=== PATIENT | male | born 1970 | race Caucasian/White ===

== ENCOUNTER 2020-06-17 09:11 | Outpatient (REF) | payer OTHER, SELFPAY ==
[2020-06-17 13:31] LABS: Estimated Average Glucose 163 mg/dL; Hemoglobin A1c % 7.3 %
== END 2020-06-17 09:12 | disposition home or self-care (01) ==
LOC: HO.MANLR 09:11
PROVIDERS: PCP Internal Medicine; Visit Provider Internal Medicine
DX: E11.9 Type 2 diabetes mellitus without complications (principal)
CPT/HCPCS: 83036

== ENCOUNTER 2020-11-07 15:58 | Outpatient (REF) | payer BC, SELFPAY ==
[2020-11-07 18:11] LABS: Estimated Average Glucose 189 mg/dL; Hemoglobin A1c % 8.2 %
[2020-11-07 18:15] LABS: Alanine Aminotransferase 23 U/L (0-40); Albumin Level 4.6 g/dL (3.5-5.0); Alkaline Phosphatase 68 U/L (39-117); Anion Gap 16 (12-20); Aspartate Amino Transferase 14 U/L (5-37); Bilirubin Total 1.1 mg/dL (0.0-1.0); Blood Urea Nitrogen 13 mg/dL (9-16); Calcium 9.4 mg/dL (8.4-10.2); Carbon Dioxide 27 mmol/L (22-29); Chloride 99 mmol/L (96-108); Estimated Glomerular Filt Rate > 60; Glucose Random 291 mg/dL (60-115); Potassium 4.2 mmol/L (3.3-5.1); Sodium 138 mmol/L (135-145); Total Protein 7.4 g/dL (6.5-8.0)
[2020-11-07 18:38] LABS: Prostate Specific Antigen 0.74 ng/mL (<0.05-4.0)
== END 2020-11-07 15:59 | disposition home or self-care (01) ==
LOC: HO.MANLDS 15:58
PROVIDERS: PCP Internal Medicine; Visit Provider Internal Medicine
DX: Z12.5 Encounter for screening for malignant neoplasm of prostate (principal); E11.9 Type 2 diabetes mellitus without complications
CPT/HCPCS: 36415; 80053; 83036; 84153; 87071; 87147

== ENCOUNTER 2022-01-13 09:22 | Outpatient (REF) | payer BC, SELFPAY ==
[2022-01-13 11:07] LABS: Alanine Aminotransferase 26 U/L (0-40); Albumin Level 4.6 g/dL (3.5-5.0); Alkaline Phosphatase 51 U/L (39-117); Anion Gap 13 (12-20); Aspartate Amino Transferase 18 U/L (5-37); Bilirubin Total 1.4 mg/dL (0.0-1.0); Blood Urea Nitrogen 11 mg/dL (9-16); Carbon Dioxide 26 mmol/L (22-29); Chloride 103 mmol/L (96-108); Cholesterol 214 mg/dL; Estimated Glomerular Filt Rate > 60; Glucose Random 169 mg/dL (60-115); HDL Cholesterol 41 mg/dL; LDL Cholesterol Calculated 133 mg/dl; Potassium 4.6 mmol/L (3.3-5.1); Sodium 137 mmol/L (135-145); Total Protein 7.6 g/dL (6.5-8.0); Triglycerides 204 mg/dL
[2022-01-13 11:19] LABS: Estimated Average Glucose 131 mg/dL; Hemoglobin A1c % 6.2 %
[2022-01-13 11:23] LABS: Prostate Specific Antigen 0.65 ng/mL (<0.05-4.0)
[2022-01-13 11:32] LABS: Creatinine Urine 22.03 mg/dL; Microalbum/Creatinine Ratio Ur 36.3 ug/mg cr
== END 2022-01-13 09:23 | disposition home or self-care (01) ==
LOC: HO.MANLDS 09:22
PROVIDERS: PCP Internal Medicine; Visit Provider Internal Medicine
DX: Z12.5 Encounter for screening for malignant neoplasm of prostate (principal); E11.9 Type 2 diabetes mellitus without complications
CPT/HCPCS: 36415; 80053; 80061; 82043; 83036; 84153; 86787

== ENCOUNTER 2022-05-10 16:06 | Outpatient (REF) | payer BC, SELFPAY ==
[2022-05-11 05:23] LABS: Estimated Average Glucose 140 mg/dL; Hemoglobin A1c % 6.5 %
== END 2022-05-10 16:07 | disposition home or self-care (01) ==
LOC: HO.MANLDS 16:06
PROVIDERS: Visit Provider Internal Medicine
DX: E11.9 Type 2 diabetes mellitus without complications (principal)
CPT/HCPCS: 36415; 83036

== ENCOUNTER 2022-09-17 16:01 | Outpatient (REF) | payer BC, SELFPAY ==
[2022-09-17 19:36] LABS: Estimated Average Glucose 131 mg/dL; Hemoglobin A1c % 6.2 %
[2022-09-17 19:44] LABS: Alanine Aminotransferase 14 U/L (0-40); Albumin Level 4.5 g/dL (3.5-5.0); Alkaline Phosphatase 60 U/L (39-117); Anion Gap 16 (12-20); Aspartate Amino Transferase 13 U/L (5-37); Bilirubin Total 0.8 mg/dL (0.0-1.0); Blood Urea Nitrogen 10 mg/dL (9-16); Calcium 9.8 mg/dL (8.4-10.2); Carbon Dioxide 26 mmol/L (22-29); Chloride 101 mmol/L (96-108); Estimated Glomerular Filt Rate > 60; Glucose Random 160 mg/dL (60-115); Potassium 4.1 mmol/L (3.3-5.1); Sodium 139 mmol/L (135-145); Total Protein 7.2 g/dL (6.5-8.0)
[2022-09-17 19:45] LABS: Creatinine Urine 22.75 mg/dL; Microalbum/Creatinine Ratio Ur 35.1 ug/mg cr
== END 2022-09-17 16:02 | disposition home or self-care (01) ==
LOC: HO.MANLDS 16:01
PROVIDERS: Visit Provider Internal Medicine
DX: E11.9 Type 2 diabetes mellitus without complications (principal)
CPT/HCPCS: 36415; 80053; 82043; 83036

== ENCOUNTER 2023-03-28 11:40 | Outpatient (REF) | payer BC, SELFPAY ==
[2023-03-28 14:46] LABS: Estimated Average Glucose 114 mg/dL; Hemoglobin A1c % 5.6 %
== END 2023-03-28 11:41 | disposition home or self-care (01) ==
LOC: HO.MANLDS 11:40
PROVIDERS: Visit Provider Internal Medicine
DX: E11.9 Type 2 diabetes mellitus without complications (principal)
CPT/HCPCS: 36415; 83036

== ENCOUNTER 2023-04-22 10:24 | Outpatient (REF) | payer BC, SELFPAY ==
[2023-04-22 15:41] LABS: Cholesterol 180 mg/dL (<200); HDL Cholesterol 37 mg/dL (>40); LDL Cholesterol Calculated 112 mg/dL (<100); Triglycerides 156 mg/dL (<150)
== END 2023-04-22 10:25 | disposition home or self-care (01) ==
LOC: HO.MANLDS 10:24
PROVIDERS: Visit Provider Internal Medicine
DX: I25.10 Atherosclerotic heart disease of native coronary artery without angina pectoris (principal)
CPT/HCPCS: 36415; 80061

== ENCOUNTER 2023-07-13 12:46 | Outpatient (REF) | payer BC, SELFPAY ==
[2023-07-13 15:27] LABS: Estimated Average Glucose 114 mg/dL; Hemoglobin A1c % 5.6 % (<6.0)
== END 2023-07-13 12:47 | disposition home or self-care (01) ==
LOC: HO.MANLDS 12:46
PROVIDERS: Visit Provider Internal Medicine
DX: E11.9 Type 2 diabetes mellitus without complications (principal)
CPT/HCPCS: 36415; 83036

== ENCOUNTER 2023-11-25 10:54 | Outpatient (REF) | payer BC, SELFPAY ==
[2023-11-25 13:32] LABS: Estimated Average Glucose 131 mg/dL; Hemoglobin A1c % 6.2 % (<6.0)
== END 2023-11-25 10:55 | disposition home or self-care (01) ==
LOC: HO.MANLDS 10:54
PROVIDERS: Visit Provider Internal Medicine
DX: E11.9 Type 2 diabetes mellitus without complications (principal)
CPT/HCPCS: 36415; 83036

== ENCOUNTER 2023-12-19 11:53 | Outpatient (REF) | payer BC, SELFPAY ==
[2023-12-22 07:53] LABS: HLA B27 Negative (Negative)
== END 2023-12-19 11:54 | disposition home or self-care (01) ==
LOC: HO.MANLDS 11:53
PROVIDERS: Visit Provider Internal Medicine
DX: M46.1 Sacroiliitis, not elsewhere classified (principal)
CPT/HCPCS: 36415; 86812

== ENCOUNTER 2024-07-23 11:58 | Outpatient (REF) | payer BC, SELFPAY ==
[2024-07-23 18:20] LABS: MANUAL DIFF FLAG NO
[2024-07-23 18:36] LABS: Basophils Percent Auto 0.6 % (0-2); Eosinophils Absolute Auto 0.1 X10*3/uL (0.0-0.4); Eosinophils Percent Auto 1.4 % (0-4); Hematocrit 41.6 % (42.0-52.0); Hemoglobin 14.8 g/dl (14.0-18.0); Imm Gran Abs Auto 0.02 X10*3/uL (0.00-0.03); Imm Gran Pct Auto 0.3 % (0.0-0.4); Lymphocytes Absolute Auto 1.3 X10*3/uL (1.2-4.9); Lymphocytes Percent Auto 19.9 % (20-40); Mean Corpuscular HGB Conc 35.6 g/dl (31.0-36.0); Mean Corpuscular Hemoglobin 30.6 pg (27.0-33.0); Mean Platelet Volume 9.7 fL (9.4-12.4); Monocytes Absolute Auto 0.5 X10*3/uL (0.1-1.2); Monocytes Percent Auto 7.1 % (2-11); Neutrophils Absolute Auto 4.5 x10*3/uL (2.0-8.3); Neutrophils Percent Auto 70.7 % (45-73); Platelet Count 260 X10*3/uL (160-400); Red Blood Count 4.84 X10*6/uL (4.60-5.80); Red Cell Distribution Width 12.7 % (11.0-16.0); White Blood Count 6.4 X10*3/uL (4.8-10.8)
[2024-07-23 18:47] LABS: Alanine Aminotransferase 24 U/L (0-40); Albumin Level 4.3 g/dL (3.5-5.0); Alkaline Phosphatase 54 U/L (39-117); Anion Gap 14 (12-20); Aspartate Amino Transferase 22 U/L (5-37); Blood Urea Nitrogen 12 mg/dL (9-16); Calcium 9.7 mg/dL (8.4-10.2); Carbon Dioxide 26 mmol/L (22-29); Chloride 101 mmol/L (96-108); Estimated Glomerular Filt Rate > 60; Glucose Random 158 mg/dL (60-115); Potassium 3.8 mmol/L (3.3-5.1); Sodium 137 mmol/L (135-145)
[2024-07-23 19:22] LABS: Prostate Specific Antigen 0.58 ng/mL (<0.05-4.0)
[2024-07-24 07:18] LABS: Estimated Average Glucose 160 mg/dL; Hemoglobin A1C 207.6352 umol/L; Hemoglobin A1c % 7.2 % (<6.0); Total Hemoglobin (HGBA1C) 3758.8465 umol/L
== END 2024-07-23 11:59 | disposition home or self-care (01) ==
LOC: HO.MANLDS 11:58
PROVIDERS: Visit Provider Internal Medicine
DX: E78.00 Pure hypercholesterolemia, unspecified (principal); E11.9 Type 2 diabetes mellitus without complications; Z12.5 Encounter for screening for malignant neoplasm of prostate; I10 Essential (primary) hypertension
CPT/HCPCS: 36415; 80053; 83036; 84153; 85025

== ENCOUNTER 2024-10-26 11:03 | Outpatient (REF) | payer BC, SELFPAY ==
--- OUTSIDE RECORDS SUMMARY | 2024-10-26 12:51 | XMS_ITS | Data Portability ---
Author Organization [facility] Address [address] [place] [address] Assessment Encounter Date Assessment Date Assessment LastModified by Organization Details LastModified Time 12/19/2023 12/19/2023 [id number] [place] [id number] (MEDIA ANALYTICS MANAGER) : MDM LOW MUST MEET 2 OF 3 ELEMENTS: PROBLEMS, DATA OR RISK ELEMENT 1: PROBLEMS ADDRESSED (LOW): 2 OR MORE SELF-LIMITED OR MINOR PROBLEMS OR 1 STABLE CHRONIC ILLNESS OR 1 ACUTE UNCOMPLICATED ILLNESS OR INJURY ELEMENT 2: DATA TO BE REVISED AND ANALYZED (LOW) MUST MEET 1 OF 2 CATEGORIES: CATEGORY 1. REVIEW OF PRIOR EXTERNAL NOTES/RESULTS, ORDERING OF TEST(S) CATEGORY 2. ASSESSMENT REQUIRING INDEPENDENT HISTORIAN(S) INCLUDE WHO THE HISTORIAN IS AND RELATION TO PT AND WHY PT IS UNABLE TO GIVE COMPLETE HISTORY ELEMENT 3: RISK (LOW) RISK OF COMPLICATIONS AND/OR MORBIDITY OR MORTALITY OF PATIENT MANAGEMENT PROVIDER MUST THOROUGHLY DOCUMENT ALL OF THE ELEMENTS COVERED Not available 12/19/2023 11:46:20 02/13/2024 02/13/2024 [id number] [place] [address] (MEDIA ANALYTICS MANAGER) MDM MODERATE MUST MEET 2 OUT OF 3 ELEMENTS: PROBLEMS, DATA OR RISK ELEMENT 1: PROBLEMS ADDRESSED 1 OR MORE CHRONIC ILLNESS WITH EXACERBATION OR 2 OR MORE STABLE CHRONIC ILLNESSES OR 1 UNDIAGNOSED NEW PROBLEM OR 1 ACUTE ILLNESS W/SYMPTOMS OR 1 ACUTE COMPLICATED INJURY ELEMENT 2: DATA MUST MEET 1 OF 3 CATEGORIES CATEGORY 1: REVIEW OF PRIOR EXTERNAL NOTES, REVIEW OF RESULTS, ORDERING OF EACH TEST, ASSESSMENT REQUIRING INDEPENDENT HISTORIAN OR CATEGORY 2: INDEPENDENT INTERPRETATION OF TESTS BY ANOTHER PHYSICIAN OR SPECIALIST OR CATEGORY 3: DISCUSSION OF MGT OR TEST INTERPRETATION W/EXTERNAL PHYSICIAN OR SPECIALIST ELEMENT 3: RISK RISK OF COMPLICATIONS AND/OR MORBIDITY OR MORTALITY OF PATIENT MANAGEMENT PROVIDER MUST THOROUGHLY DOCUMENT EACH ELEMENT THAT IS COVERED Not available 02/13/2024 10:43:49 02/28/2024 02/28/2024 [id number] [place] [id number] (MEDIA ANALYTICS MANAGER) MDM MODERATE MUST MEET 2 OUT OF 3 ELEMENTS: PROBLEMS, DATA OR RISK ELEMENT 1: PROBLEMS ADDRESSED 1 OR MORE CHRONIC ILLNESS WITH EXACERBATION OR 2 OR MORE STABLE CHRONIC ILLNESSES OR 1 UNDIAGNOSED NEW PROBLEM OR 1 ACUTE ILLNESS W/SYMPTOMS OR 1 ACUTE COMPLICATED INJURY ELEMENT 2: DATA MUST MEET 1 OF 3 CATEGORIES CATEGORY 1: REVIEW OF PRIOR EXTERNAL NOTES, REVIEW OF RESULTS, ORDERING OF EACH TEST, ASSESSMENT REQUIRING INDEPENDENT HISTORIAN OR CATEGORY 2: INDEPENDENT INTERPRETATION OF TESTS BY ANOTHER PHYSICIAN OR SPECIALIST OR CATEGORY 3: DISCUSSION OF MGT OR TEST INTERPRETATION W/EXTERNAL PHYSICIAN OR SPECIALIST ELEMENT 3: RISK RISK OF COMPLICATIONS AND/OR MORBIDITY OR MORTALITY OF PATIENT MANAGEMENT PROVIDER MUST THOROUGHLY DOCUMENT EACH ELEMENT THAT IS COVERED Not available 02/28/2024 09:38:36 07/23/2024 07/23/2024 [id number] [place] [id number] (MEDIA ANALYTICS MANAGER) MDM MODERATE MUST MEET 2 OUT OF 3 ELEMENTS: PROBLEMS, DATA OR RISK ELEMENT 1: PROBLEMS ADDRESSED 1 OR MORE CHRONIC ILLNESS WITH EXACERBATION OR 2 OR MORE STABLE CHRONIC ILLNESSES OR 1 UNDIAGNOSED NEW PROBLEM OR 1 ACUTE ILLNESS W/SYMPTOMS OR 1 ACUTE COMPLICATED INJURY ELEMENT 2: DATA MUST MEET 1 OF 3 CATEGORIES CATEGORY 1: REVIEW OF PRIOR EXTERNAL NOTES, REVIEW OF RESULTS, ORDERING OF EACH TEST, ASSESSMENT REQUIRING INDEPENDENT HISTORIAN OR CATEGORY 2: INDEPENDENT INTERPRETATION OF TESTS BY ANOTHER PHYSICIAN OR SPECIALIST OR CATEGORY 3: DISCUSSION OF MGT OR TEST INTERPRETATION W/EXTERNAL PHYSICIAN OR SPECIALIST ELEMENT 3: RISK RISK OF COMPLICATIONS AND/OR MORBIDITY OR MORTALITY OF PATIENT MANAGEMENT PROVIDER MUST THOROUGHLY DOCUMENT EACH ELEMENT THAT IS COVERED Not available 07/23/2024 11:52:52 Plan of Treatment Reminders Order Date Submit Date Provider Last Modified By Organization Details Last Modified Time Details Appointments FOLLOW UP 15 2024 11:00A M DR SOSA Not available Not available Not available Lab CBC 2023 024 [facility], [address] [place] [address], [place], [address], 07/24/2024 11:47:08 PSA, serum or plasma 2023 024 [facility], [address] [place] [address], [place], [address], 07/23/2024 11:54:14 HbA1c (hemoglob in A1c), blood 2023 [facility], [address] [place] [address], [place], [address], 07/24/2024 11:47:08 CMP, serum or plasma 2023 [facility], [address] [place] [address], [place], [address], 07/24/2024 11:47:07 hla-[id number], blood 2023 [facility], [address] [place] [address], [address], 12/22/2023 12:27:54 Referral physical therapist referral - please be aggressiv e pt is very physicall y active for work 2023 [facility], [address] [place], [address], 12/26/2023 08:23:43 Procedures None recorded. Surgeries None recorded. Imaging XR, chest, 2 view - follow up from right sided pneumonit is 2023 [facility], [address] [place], [address], 03/27/2024 08:07:52 Medication Orders hydrocodo ne 10 mg-chlorp heniramin e 8 mg/5 mL oral susp extend.re l 12hr 2023 [facility] #[id number], [address] [place], [place], [id number], 02/28/2024 09:42:07 prednison e 10 mg tablet 2023 [facility] #96524, [address] [place], [place], [id number], 02/28/2024 09:42:02 fluticaso ne 500 mcg-salme terol 50 mcg/dose blistr powdr for inhalatio n 2023 024 [facility] #75557, [address] [place], [place], [phone], 07/23/2024 11:47:54 tadalafil 20 mg tablet 2023 024 [facility], [address] [place] [address], [place], [address], 02/13/2024 10:45:24 azithromy debbi 250 mg tablet 2023 024 [facility] #49505, [address] [place], [place], [id number], 02/13/2024 10:44:11 Medrol (Antonio) 4 mg tablets in a dose pack 2023 024 [facility] #[id number], [address] [place], [place], [id number], 02/28/2024 21:59:12 Patient TargetsNo targets recorded. Patient Instructions Encounter Date Encounter Id Patient Instructions Last Modified By Organization Details Last Modified Time 02/28/2024 [id number] pneumonia: care instructions Not available 02/28/2024 09:41:55 Reason for Referral Physical Therapist Referral for Bilateral sacroiliitis please be aggressive pt is very physically active for work Referring Physician: Elías Sosa, Internal Medicine, Encounter Date: 12/19/2023 Results Created Date Observation Date Name Description Value Unit Range Abnormal Flag Note LastModifiedBy Organization Detail LastModifiedTime 11/30/19 24 11/28/2023 XR, lumbo sacra l spine , 2 or 3 view No observ ation record ed. [email or web address] [address], [place], [address], 12/02/2023 15:19:33 11/30/19 24 11/28/2023 XR, hip + pelvi s, unila teral , 2 or 3 view No observ ation record ed. [email or web address] [address], [address], 12/02/2023 15:19:34 02/22/20 24 02/22/2024 XR, chest , 2 view No observ ation record ed. [email or web address] [address], [address], 02/24/2024 12:11:48 04/05/20 24 04/05/2024 XR, chest , 2 view No observ ation record ed. [email or web address] [address], [address], 2024 09:20:33 Result Notes None recorded. Problems Name Problem SNOMED Code Status Onset Date Resolution Date Notes Provider Name and Address Organization Details Recorded Time Hyperten sive disorder 76146383 Active 2017 Not Available [facility] 2 13:45:01 Impaired fasting glycemia 545175856 Completed 201710/19/2019 Elías Sosa, DO [address] [place] [address], [address], [facility] 0 16:44:26 Degenera tion of lumbar interver tebral disc 48910218 Active 2017 Not Available [facility] 2 13:45:01 History of polyp of colon 410539975 Active 2017 Not Available [facility] 2 13:45:01 Osteoart hritis 418327636 Active 2018 Not Available [facility] 2 13:45:01 Type 2 diabetes mellitus 36877737 Active 2019 Not Available [facility] 2 13:45:01 Gastroes ophageal reflux disease 163702837 Active 2019 Not Available [facility] 2 13:45:01 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 2021 Elías Sosa, DO [address] [place] [address], [address], [facility] 2 16:26:27 Osteoart hritis of left knee joint 0239024592 20752 Active 2021 did well with replacem ent since nov has been back to work [employer] [facility] Elías Sosa, DO [address] [place] [address], [address], [facility] 3 16:18:47 Hypercho lesterol emia 27615246 Active 2022 Elías Sosa, DO [address] [place] [address], [address], [facility] 3 16:23:44 Calcific coronary arterios clerosis 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 Active 2022 Elías Sosa, DO [address] [place] [address], [address], [facility] 3 16:25:38 Low back pain 094201311 Active 2023 Elías Sosa, DO [address] [place] [address], [address], [facility] 4 12:21:40 Pain of left hip joint 2993010521 57473 Active 2023 Elaís Sosa, DO [address] [place] [address], [address], [facility] 4 12:22:12 Motion sickness 76628509 Active 2023 Elías Sosa DO [address] [place] [address], [address], [facility] 4 12:25:30 Allergic rhinitis 81700145 Active 2023 Elías Sosa DO [address] [place] [address], [address], [facility] 4 12:28:18 Bilatera l sacroili itis 2066966255 1943492 Active 2023 Elías Sosa, DO [address] [place] [address], [address], [facility] 4 11:46:35 Pneumoni tis 680653769 Active 2023 Elías Sosa, DO [address] [place] [address], [address], [facility] 4 10:42:21 Cough 00069657 Active 2023 Elías Sosa, DO [address] [place] [address], [address], [facility] 4 22:34:30 Pneumoni a 477810590 Active 2023 Elías Sosa, DO [address] [place] [address], [address], [facility] 4 00:37:56 Reactive airway disease 1680553923 06 Active 2023 Elías Sosa, [address], [address], [facility] 4 09:34:57 Problem Notes None recorded. Procedures Surgical History Date Name Laterality Status Provider Name and Address Organization Details Recorded Time 6 Colonoscopy completed Mariela Palmer [facility] 08/25/2018 09:49:23 Imaging Results Imaging Date Name Status LastModified by Organiz ation Details LastModified Time 11/28/2023 XR, lumbosacral spine, 2 or 3 view completed [email or web address] [address], [address], 12/02/2023 15:19:33 11/28/2023 XR, hip + pelvis, unilateral, 2 or 3 view completed [email or web address] [address], [address], 12/02/2023 15:19:34 02/22/2024 XR, chest, 2 view completed [email or web address] [address], [address], 02/24/2024 12:11:48 04/05/2024 XR, chest, 2 view completed [email or web address] [address], [address], 2024 09:20:33 Procedure Notes None recorded. Medical Equipment None Reported. Allergies No known drug allergies Medications Name Sig Start Date Stop Date Status Note LastModified by Organization Details LastModified Time prednisone 10 mg tablet 4 tab po 1d x 3 days then 3 po qd x 3 ,then 2 po qd x 3 then 1 po qd x3 days active Not Available Not Available No t Available sildenafil 50 mg tablet Take 1 tablet every day by oral route for 30 days. 06/18 completed Not Available Not Available Not Available azithromyci n 250 mg tablet TAKE 2 TABLETS BY MOUTH FOR DAY 1. THEN TAKE 1 TABLET BY MOUTH EVERY DAY FOR 4 DAYS. active Not Available Not Available No t Available ibuprofen 800 mg tablet TAKE 1 TABLET BY MOUTH EVERY 8 HOURS NEEDED active Not Available Not Available No t Available ondansetron HCl 4 mg tablet TAKE 1 TABLET BY MOUTH EVERY 6 HOURS NEEDED FOR NAUSEA OR VOMITING 09/17 completed Not Available Not Available Not Available aspirin 81 mg tablet,scooter yed release Take 1 tablet every day by oral route. active Not Available Not Available No t Available sildenafil 100 mg tablet take 1 tablet by mouth once a day as needed 01/18 completed Not Available Not Available Not Available amoxicillin 500 mg tablet TAKE 4 TABLETS BY MOUTH 1 HOUR BEFORE DENTAL WORK 11/27 completed Not Available Not Available Not Available meloxicam 7.5 mg tablet TAKE 1 TABLET BY MOUTH DAILY 07/23 completed Not Available Not Available Not Available losartan 100 mg-hydrochl orothiazide 25 mg tablet take 1 tablet by mouth once a day 01/27 completed Not Available Not Available Not Available terbinafine HCl 250 mg tablet 08/25 completed Not Available Not Available Not Available amlodipine 10 mg tablet TAKE 1 TABLET DAILY active Not Available Not Available No t Available omeprazole 20 mg capsule,del ayed release TAKE 1 CAPSULE DAILY active Not Available Not Available No t Available lovastatin 20 mg tablet TAKE 1 TABLET DAILY 04/20 completed Not Available Not Available Not Available levofloxaci n 750 mg tablet TAKE 1 TABLET BY MOUTH EVERY DAY FOR 7 DAYS active Not Available Not Available No t Available scopolamine 1 mg over 3 days transdermal patch APPLY 1 PATCH TOPICALLY TO THE SKIN EVERY 72 HOURS FOR 10 DAYS 12/18 completed Not Available Not Available Not Available methylpredn isolone 4 mg tablets in a dose pack FOLLOW PACKAGE DIRECTION S 02/27 completed Not Available Not Available Not Available hydrocodone 10 mg-chlorphe niramine 8 mg/5 mL oral susp extend.rel 12hr SHAKE LIQUID AND TAKE 5 ML BY MOUTH EVERY 12 HOURS FOR 7 DAYS active Not Available Not Available No t Available albuterol sulfate HFA 90 mcg/actuati on aerosol inhaler INHALE 2 PUFFS INTO THE LUNGS EVERY 6 HOURS NEEDED active Not Available Not Available No t Available ketoconazol e 2 % topical cream 08/25 completed Not Available Not Available Not Available losartan 100 mg tablet TK 1 T PO QD 11/07 completed Not Available Not Available Not Available fluticasone propionate 50 mcg/actuati on nasal spray,suspe nsion 08/25 completed Not Available Not Available Not Available oxycodone 5 mg tablet TAKE 1 TO 2 TABLETS BY MOUTH EVERY 4 HOURS NEEDED FOR PAIN 09/17 completed Not Available Not Available Not Available azithromyci n 500 mg tablet 08/25 completed Not Available Not Available Not Available rosuvastati n 20 mg tablet 1 PO QD 10/14 completed Not Available Not Available Not Available rosuvastati n 40 mg tablet Take 1 tablet every day by oral route for 90 days. active Not Available Not Available No t Available tadalafil 20 mg tablet Take 1 tablet every day by oral route for 90 days. active Not Available Not Available No t Available losartan 100 mg-hydrochl orothiazide 12.5 mg tablet TAKE 1 TABLET DAILY 2023 active Not Available Not Available Not Avai lable hydrochloro thiazide 12.5 mg tablet TK 1 T PO QD 11/07 completed Not Available Not Available Not Available Wixela Inhub 500 mcg-50 mcg/dose powder for inhalation INHALE 1 PUFF BY MOUTH TWICE DAILY 07/23 completed Not Available Not Available Not Available BinaxNOW COVID-19 Ag Self Test kit TEST DIRECTED TODAY 11/27 completed Not Available Not Available Not Available Vitals Date Recorded Body height Body mass index (BMI) Body weight Heart rate Oxygen saturation Oxygen saturation in Arterial blood by Pulse oximetry Systolic blood pressure Diastolic blood pressure Provider Name and Address Organization Details Last Updated DateTime 4 177.17 cm 37.4 kg/m2 025681. 35 g 86 /min 97 % 97 % 120 mm[Hg] 80 mm[Hg] Luz Kumar [facility] 4 11:13:58 Date Recorded Body height Body mass index (BMI) Body weight Heart rate Respiratory rate Oxygen saturation Oxygen saturation in Arterial blood by Pulse oximetry Systolic blood pressure Diastolic blood pressure Provider Name and Address Organization Details Last Updated DateTime 4 177.8 cm 36.3 kg/m2 300729. 87 g 105 /min 19 /min 98 % 98 % 128 mm[Hg] 82 mm[Hg] Nick Keys [facility] 4 10:15:13 Date Recorded Body height Body mass index (BMI) Body weight Heart rate Oxygen saturation Oxygen saturation in Arterial blood by Pulse oximetry Systolic blood pressure Diastolic blood pressure Provider Name and Address Organization Details Last Updated DateTime 4 177.8 cm 36.3 kg/m2 677501. 87 g 71 /min 97 % 97 % 130 mm[Hg] 70 mm[Hg] Dorothy Camacho [facility] 4 09:12:52 Date Recorded Body height Body mass index (BMI) Body weight Heart rate Oxygen saturation Oxygen saturation in Arterial blood by Pulse oximetry Systolic blood pressure Diastolic blood pressure Provider Name and Address Organization Details Last Updated DateTime 4 177.8 cm 36 kg/m2 137860. 68 g 103 /min 97 % 97 % 120 mm[Hg] 70 mm[Hg] Dorothy Camacho [facility] 4 12:08:18 Date Recorded Body height Body mass index (BMI) Body weight Heart rate Oxygen saturation Oxygen saturation in Arterial blood by Pulse oximetry Systolic blood pressure Diastolic blood pressure Provider Name and Address Organization Details Last Updated DateTime 4 177.8 cm 36.2 kg/m2 178753. 28 g 92 /min 98 % 98 % 148 mm[Hg] 78 mm[Hg] Dorothy Newman [facility] 4 11:37:10 Social History Question Answer Notes LastModified by Organizat ion Details LastModified Time Tobacco Smoking Status Former Smoker Not Available [facility] 07/01/2020 03:36:24 What Was The Date Of Your Most Recent Tobacco Screening? 07/23/2024 Information not available 07/23/2024 Do You Or Have You Ever Used Any Other Forms Of Tobacco Or Nicotine? No [email or web address] Information not available 05/10/2022 Sex: Unknown Functional Status None recorded. Mental Status None recorded. Family History Nothing Reported. Medical History No medical history recorded. Immunizations Vaccine Type Date Status Note Provider Nam e and Address Organization Details Recorded Time Influenza, split virus, quadrivalent, preservative 1 completed Not Available [facility] 08/23/2023 14:30:06 Tdap 1 completed Not Available [facility] 08/23/2023 14:30:06 COVID-19, mRNA, LNP-S, PF, 30 mcg/0.3 mL dose 1 completed Not Available [facility] 08/23/2023 14:30:06 COVID-19, mRNA, LNP-S, PF, 30 mcg/0.3 mL dose 1 completed Not Available [facility] 08/23/2023 14:30:06 COVID-19, mRNA, LNP-S, PF, 30 mcg/0.3 mL dose 2 completed Not Available [facility] 08/23/2023 14:30:06 influenza, unspecified formulation 2 completed Not Available [facility] 08/23/2023 14:30:06 Past Encounters Encounter ID Performer Location Encounter Start Date Encounter Closed Date Diagnosis/Indication Diagnosis SNOMED-CT Code Diagnosis ICD10 Code Diagnosis Note [id number] DO [facility] [address] [facility],[place] [address] 08/25/2018 10:15:10 08/25/2018 12:35:45 Hypertensive disorder 95236624 I10 bp is stable and is doing ok has lost some wgt \ tolerating meds no issues Impaired f asting glycemia 622420881 R73.01 will need to get some labwork atsome point [id number] Elías Sosa DO [facility] [address] [facility], [employer] [place] [address] 03/13/2019 10:40:15 03/13/2019 16:16:11 Hypertensive disorder 94620827 I10 bp is stable and is doing ok has lost some wgt \ tolerating meds no issues Impaired f asting glycemia 742202955 R73.01 will need to get some labwork now Hypercholesterolemia 136 97142 E78.00 needs fbw [id number] Elías Sosa DO [facility] [address] [facility], [place] [address] 08/17/2019 14:10:13 08/17/2019 14:33:11 Impaired fasting glycemia 639894491 R73.01 will need to get some labwork now Hypertensive disorder 38 777085 I10 bp is stable and is doing ok has lost some wgt \ tolerating meds no issues Fatigue 92657366 R53.83 including ED Primary er ectile dysfunction 255815527 N52.9 [id number] Elías Sosa DO [facility] [address] [facility],[place] [address] 10/19/2019 15:41:21 10/22/2019 08:36:17 Hypertensive disorder 45191038 I10 bp is stable and is doing ok has lost some wgt tolerating meds no issues Hypercholesterolemia 136 59624 E78.00 tolerating lovastatin well will do a repeat lipid panel since last one was done in 2018 Diabetes mellitus 790335 09 E11.9 will start with diet and exercise to see if can lower A1c and blood glucose [id number] Elías Sosa DO [facility] [address] [facility],[place] [address] 02/04/2020 15:54:39 02/04/2020 16:42:53 Hypertensive disorder 30490998 I10 bp is stable and is doing ok has lost some wgt tolerating meds no issues Type 2 sheeba betes mellitus 74388907 E11.9 Gastroesop hageal reflux disease 905362512 K21.9 occ takes the prilosec or tums only on occasion Degenerati on of lumbar intervertebral disc 20906237 M51.36 lumbar antonieta ais good has flared recently and was about 2 weeks ago \relates otherwise it had abeen good Primary er ectile dysfunction 100690474 N52.9 [id number] Elías Sosa [facility] [address] [facility],[place] [address] 06/18/2020 14:28:56 06/18/2020 14:51:23 Type 2 diabetes mellitus 12549696 E11.9 is utd in the preventiti ve aspects has good feet exam and is compliant with his eye eval a1c 7.3 Hypertensive disorder 38 233344 I10 bp is stable and is doing ok has lost some wgt tolerating meds no issues Immunization due 5002717 08 Z28.3 [id number] Elías Sosa [facility] [address] [facility],[place] [place] 7 11/07/2020 15:20:20 11/07/2020 15:57:11 Type 2 diabetes mellitus 13639462 E11.9 is utd in the preventiti ve aspects has good feet exam and is compliant with his eye eval a1c 7.3 last time but needs test now Hypertensive disorder 38 375214 I10 bp is stable and is doing ok has lost some wgt tolerating meds no issues Gastroesop hageal reflux disease 695143520 K21.9 we are going to cont the omeprazole in case this turns out to be laryngeal reflux (ie the cough) Cough 71718634 R05 we will do a throat culture also we will treat him for an atypical org we will have him stop the losartan for a few days and then let me know how he is feeling also could also be a poss form of asthma Trigger fi nger of right hand 3109531084 [id number] M65.30 [id number] Elías Sosa DO [facility] [address] [facility] [address] [place] [address] 11/28/2020 14:57:24 11/28/2020 15:30:46 Hypertensive disorder 14708405 I10 bp is stable and is doing ok has lost some wgt tolerating meds no issues Esophageal dysphagia 408 82803 R13.19 coughing after each meal /??if this is esoph dysmotilit y v. diverticul um v stricture? ? Pain in fi nger of right hand 7538002149 [id number] M79.133 [id number] Elías Sosa [facility] [address] [facility], [place] [address] 09/18/2021 08:27:13 09/18/2021 13:39:06 Hypertensive disorder 99563109 I10 bp is stable and is doing ok has lost some wgt tolerating meds no issues Type 2 sheeba betes mellitus 61518319 E11.9 is utd in the [facility]iti [facility] has good feet exam and is compliant with his eye eval a1c 7.3 last time but needs test now Gastroesop hageal reflux disease 212253917 K21.9 we are going to cont the omeprazole in case this turns out to be laryngeal reflux (ie the cough) Primary er ectile dysfunction 140691282 N52.9 [id number] Elías Sosa [facility] [address] [facility],[place] [address] 01/18/2022 15:53:03 01/19/2022 14:52:27 Gastroesophageal reflux disease 449480150 K21.9 we are going to cont the omeprazole in case this turns out to be laryngeal reflux (ie the cough) Type 2 sheeba betes mellitus 65005806 E11.9 is utd in the preventiti [facility] has good feet exam and is compliant with his eye eval a1c 7.3 last time but needs test now Hypertensive disorder 38 061695 I10 bp is stable and is doing ok has lost some wgt and this will continue tolerating meds no issues Active or passive immunization [id number] Z23 patient advised of vaccines due Costal chondritis 084738 04 M94.0 will use advil and call if unhelpful [id number] Elías Sosa [facility] [address], [place] [address] 05/10/2022 15:14:47 05/10/2022 16:00:12 Type 2 diabetes mellitus 34484022 E11.9 is utd in the [facility] has good feet exam and is compliant with his eye eval a1c 6.0 last time but needs test now Hypertensive disorder 38 170057 I10 bp is stable and is doing ok has lost some wgt and this will continue tolerating meds no issues Osteoarthr itis of left knee joint [id number] 12768 M17.12 getting knee replacemen t in june Elías Sosa [facility] [address],[place] [address] 09/17/2022 14:58:42 09/17/2022 16:00:26 Type 2 diabetes mellitus 38675765 E11.9 is utd in the [facility] has good feet exam and is compliant with his eye eval a1c .6.5 last time but needs test now Hypertensive disorder 38 158581 I10 bp is stable and is doing ok has lost some wgt and this will continue tolerating meds no issues [id number] Elías Sosa [facility] [address] [address] 12/27/2022 15:21:50 12/27/2022 16:50:34 Type 2 diabetes mellitus 72074639 E11.9 is utd in the [facility] has good feet exam and is compliant with his eye eval a1c .is pending! last was in sept was 6.5 last time but needs test now Hypertensive disorder 38 038377 I10 bp is stable and is doing ok has lost some wgt and this will continue tolerating meds no issues Osteoarthr itis of left knee joint [id number] 94414 M17.12 getting knee replacemen t in june Elías Sosa [facility] [address],[place] [address] 04/20/2023 15:22:49 04/20/2023 16:30:57 Hypertensive disorder 36644827 I10 bp is stable and is doing ok has lost some wgt and this will continue tolerating meds no issues Type 2 sheeba betes mellitus 59475293 E11.9 is utd in the [facility] has good feet exam and is compliant with his eye eval a1c .is 5.6 last was in apr was 6.5 last time but needs test now Hypercholesterolemia 136 33418 E78.00 given coronary calcium score we will have him switch to rosuvastat in and get cardiology appt Calcific c oronary arteriosclerosis 07955330 I25.10 [id number] Elías Sosa [facility] [address],[place] [address] 11/28/2023 11:52:18 11/28/2023 13:54:26 Type 2 diabetes mellitus 88756492 E11.9 is utd in the [facility] has good feet exam and is compliant with his eye eval a1c .is 6.2 prior was 5.6 last was in apr was 6.5 last time but needs test now Hypercholesterolemia 136 60005 E78.00 Prior : given coronary calcium score we will have him switch to rosuvastat in and get cardiology appt Low back pain 476192789 M54.50 tremayne l start with xrays of these areas Pain of le ft hip joint 8758451083 58483 M25.552 will get pelvis too Motion sickness 55999571 T75.3XXA Allergic rhinitis 193764 04 J30.9 will try zyrtec [id number] Elías Sosa [facility] [address],[place] [address] 12/19/2023 11:09:03 12/19/2023 12:01:18 Bilateral sacroiliitis [id number] 3630305 M46.1 [id number] Elías Sosa [facility] [address],[place] [address] 02/13/2024 10:07:32 02/13/2024 10:51:41 Depression screening 053505307 Z13.31 Negative Pneumonitis 364751726 J1 8.9 Primary er ectile dysfunction 038741494 N52.9 [id number] Elías Sosa [facility] [address],[place] [address] 02/28/2024 08:56:26 02/28/2024 14:47:09 Pneumonia 543723362 J18.9 full week levofloxac in 750add pred taper Reactive a irway disease 9010251375 06 J45.909 will need taper [id number] Elías Kennedy Hardik [facility] [address],[place] [address] 03/12/2024 12:03:11 03/13/2024 09:08:17 Pneumonitis 144949820 J18.9 [id number] Elías Kennedy Hardik [facility] [address],[place] [address] 07/23/2024 11:33:48 07/23/2024 11:54:46 Hypercholesterolemia 24262080 E78.00 Prior : given coronary calcium score we will have him switch to rosuvastat in and get cardiology appt Hypertensive disorder 38 234392 I10 bp is stable and is doing ok has lost some wgt and this will continue tolerating meds no issues Osteoarthr itis of left knee joint 4681265293 17084 M17.12 getting knee replacemen t in june Type 2 sheeba betes mellitus 05638589 E11.9 is utd in the [facility] has good feet exam and is compliant with his eye eval a1c .is 6.2 prior was 5.6 last was in apr was 6.5 last time but needs test now Health Concerns Section Related Observation LastModified by Organization Detai ls LastModified Time None Recorded Concern Status LastModified by Organization Details LastModified Time None Recorded Advance Directives Directive None Recorded Payers Encounter Date Sequence Insurance Name Policy Number Policy [employer] Covered Member ID [employer] Member ID Guarantor Name 12/19/2023 1 [place] [id number] Mj T Halket [id number] Mj T Halket 02/13/2024 1 [place] [id number] Mj T Halket [id number] Mj T Halket 02/28/2024 1 [place] [id number] Mj T Halket [id number] Mj T Halket 03/12/2024 1 [place] [id number] Mj T Halket [id number] Mj Guzmanket 07/23/2024 1 [place] [id number] Mj Guzmanket [id number] Mj Quiles Notes Date Note Type Note Provider Name and Address Organization Details Recorded Time 4 text/htm l here for rechkhas had numerous xrays reveal mild degenerative changes in LS and hipsnoted has significant sacroiliitis Elías Sosa DO [address] [place], [address], [facility] 12/19/2023 12:05:14 4 text/htm l here for rechk doing ok overallhas had a cough for 3 weeks and relates has had a waxing and waning course of a non productive coughseen at last tuesday and given pred and cough med and did not helpneeds refill for tadalafil also his SI jt is still an issue and has been seen by DC and is feeling better Elías Sosa DO [address] [place], [address], [facility] 02/13/2024 10:48:35 4 text/htm l is on 5th day of levaquin and is still coughing and wheezing with no improvement in his sx still wheezing and having coughing fits hard to sleep hears himself wheezing Elías Sosa DO [address] [place], [address], [facility] 02/28/2024 09:42:43 4 text/htm l here for rechk and is doing much better overallcough has abated and relates he is doing greatfeels much better now and inhalers and abx have gotten better and is now back to baseline Elías Sosa DO [address] [place], [address], [facility] 03/12/2024 12:29:39 4 text/htm l Care Management - DiabetesReported bypatient.Self Care:seeing eye doctor yearly for dilated eye exam; checking feet regularly; normal range of home blood sugars (in the low 100s); no side effects from medications Associated Symptoms:symptoms are usually well controlled; no fatigue; no dizziness; no excessive sweating; no headaches; no confusion; no increased thirst; no increased appetite; no increased urination; no blurred vision; no numbness of feet; no calluses on feetCare Management - HypertensionReported bypatient.Self Care:not under emotional stress Severity:symptoms are improving; does not interfere with daily activities Associated Symptoms:no dizziness; no lightheadedness; no chest pain; no shortness of breath; no palpitations; no edema; no calf muscle cramps; no blurred vision; no confusion; no headaches; no fatigue here for rech of bprelates that he is doing okstill has occ gerd sx but overall feels well still takes omeprazole Elías Sosa, DO [address] [facility], [place], [address], [facility] 07/23/2024 11:54:16
--- OUTSIDE RECORDS SUMMARY | 2024-10-26 12:52 | XMS_ITS | Data Portability ---
Author Organization [facility], [facility] Address [address] [place] [address] Assessment No assessment recorded. Plan of Treatment Reminders Order Date Submit Date Provider Last Modified By Organization Details Last Modified Time Details Appointments None record ed. Lab None record ed. Referral None record ed. Procedures None record ed. Surgeries None record ed. Imaging None record ed. Medication Orders None record ed. Patient TargetsNo targets recorded. Patient InstructionsNo instructions recorded. Reason for Referral None Reported. Results Created Date Observation Date Name Description Value Unit Range Abnormal Flag Note LastModifiedBy Organization Detail LastModifiedTime Result Notes None recorded. Procedures Surgical History Date Name Laterality Status Provider Name and Address Organization Details Recorded Time Esperanza - Colonoscopy completed [address], [address], [facility] 10/03/2015 12:19:34 Imaging Results None recorded. Procedure Notes None recorded. Medical Equipment None Reported. Medications Name Sig Start Date Stop Date Status Note LastModified by Organization Details LastModified Time levofloxacin 750 mg tabs active Not Available Not Available Not Available hydrocodone bitartrate/h omatropineme thylbromide 5-1.5 mg/5ml syrp active Not Available Not Available Not Available prochlorpera zine maleate 10 mg tabs active Not Available Not Available N ot Available lovastatin 20 mg tabs active Not Available Not Available N ot Available azithromycin 250 mg tabs active Not Available Not Available Not Available diclofenac sodium dr 75 mg tbec active Not Available Not Available Not Available amlodipine besylate 10 mg tabs active Not Available Not Available Not Available losartan potassium/hy drochlorothi azide 100-12.5 mg tabs active Not Available Not Available Not Available gavilyte-g 236 gm solr active Not Available Not Available Not Available prednisone 20 mg tabs active Not Available Not Available N ot Available hydrocodone/ homatropine 5-1.5 mg/5ml syrp active Not Available Not Available Not Available proair hfa 108 (90 base) mcg/act aers active Not Available Not Available Not Available azithromycin 250 mg tablet take 2 tablets by mouth today then take 1 tablet DAILY FOR 4 DAYS active Not Available Not Available No t Available prednisone 20 mg tablet TAKE 3 TABLETS BY MOUTH ONCE DAILY FOR 2 DAYS, 2 TABS FOR 2 DAYS, 1 TAB FOR 2 DAYS active Not Available Not Available N ot Available prochlorpera zine maleate 10 mg tablet TAKE 1 TABLET BY MOUTH EVERY 6 HOURS NEEDED active Not Available Not Available No t Available amlodipine 10 mg tablet TAKE 1 TABLET BY MOUTH ONCE DAILY active Not Available Not Available No t Available hydrocodone- homatropine 5 mg-1.5 mg/5 mL oral syrup take 5 milliliters by mouth twice a day if needed active Not Available Not Available No t Available diclofenac sodium 75 mg tablet,delay ed release take 1 tablet by mouth twice a day if needed for pain active Not Available Not Available No t Available lovastatin 20 mg tablet Take 1 tablet by mouth once a day active Not Available Not Available No t Available levofloxacin 750 mg tablet take 1 tablet by mouth once daily active Not Available Not Available No t Available losartan 100 mg-hydrochlo rothiazide 12.5 mg tablet TAKE 1 TABLET BY MOUTH ONCE DAILY active Not Available Not Available No t Available ProAir HFA 90 mcg/actuatio n aerosol inhaler INHALE 2 PUFFS BY MOUTH EVERY 4 HOURS NEEDED active Not Available Not Available No t Available GaviLyte-G 236 gram-22.74 gram-6.74 gram-5.86 gram oral solution USE DIRECTED active Not Available Not Available No t Available Vitals None Recorded Social History None recorded. Functional Status None recorded. Mental Status None recorded. Family History Nothing Reported. Medical History No medical history recorded. Past Encounters Encounter ID Performer Location Encounter Start Date Encounter Closed Date Diagnosis/Indication Diagnosis SNOMED-CT Code Diagnosis ICD10 Code Diagnosis Note [id number] Yajaira Vila [facility], [address] [address] 10/03/2015 10:04:48 10/03/2015 13:09:16 Health Concerns Section Related Observation LastModified by Organization Detai ls LastModified Time None Recorded Concern Status LastModified by Organization Details LastModified Time None Recorded Advance Directives Directive None Recorded Payers Encounter Date Sequence Insurance Name Policy Number Policy [employer] Covered Member ID [employer] Member ID Guarantor Name 10/03/2015 1 [facility] [id number] Mj Quiles [id number] Mj Quiles
[2024-10-26 13:49] LABS: Estimated Average Glucose 151 mg/dL; Hemoglobin A1c % 6.9 % (<6.0); Total Hemoglobin (HGBA1C) 3975.7726 umol/L
== END 2024-10-26 11:04 | disposition home or self-care (01) ==
LOC: HO.MANLDS 11:03
PROVIDERS: Visit Provider Internal Medicine
DX: E11.9 Type 2 diabetes mellitus without complications (principal)
CPT/HCPCS: 36415; 83036

== ENCOUNTER 2025-01-23 09:46 | Outpatient (REF) | payer BC, SELFPAY ==
--- OUTSIDE RECORDS SUMMARY | 2025-01-23 10:32 | XMS_ITS | Data Portability ---
Author Organization [facility] Home Service Address [address] [place] [address] Assessment Encounter Date Assessment Date Assessment LastModified by Organization Details LastModified Time 02/28/2024 02/28/2024 [address] [place] [address] ([employer]) MDM MODERATE MUST MEET 2 OUT OF [...] COVERED Not available 02/28/2024 09:38:36 07/23/2024 07/23/2024 [address] [place] [address] (ARCH[employer]) MDM MODERATE MUST MEET 2 OUT OF [...] THAT IS COVERED Not available 07/23/2024 11:52:52 10/29/2024 10/29/2024 [address] [place] [address] ([employer]IT[employer]ISHER) MDM MODERATE MUST MEET 2 OUT OF [...] EACH ELEMENT THAT IS COVERED Not available 10/29/2024 11:14:39 Plan of Treatment Reminders Order Date Submit Date Provider Last Modified By Organization Details Last Modified Time Details Appointments FOLLOW UP 15 2024 09:00A Horace SOSA Not available Not available Not available Lab MMRV immunity, serum or plasma [address] [facility], [address] [place] [address], [address], 10/29/2024 11:20:40 CBC 2023 [facility], [address] [place] [address], [address], 07/24/2024 11:47:08 PSA, serum or plasma [address] [facility], [address] [place] [address], [address], 07/23/2024 11:54:14 HbA1c (hemoglob in A1c), blood 2023 024 [facility], [address] [place] [address], [address], 07/24/2024 11:47:08 CMP, serum or plasma 2023 024 [facility], [address] [place] [address], [place], [address], 07/24/2024 11:47:07 Referral None recorded. Procedures None recorded. Surgeries None recorded. Imaging CT, abdomen + pelvis, w/o contrast 2024 025 [facility], [address] [place] [address], [address], 11/13/2024 08:28:53 XR, chest, 2 view - follow up from right sided pneumonit is 2023 024 [facility], [address] [place] [address], [address], 03/27/2024 08:07:52 Medication Orders metformin ER 500 mg tablet,ex tended release 24 hr 2024 025 [email or web address] [facility][id number], [address] [place], [place], [id number], 11/12/2024 10:47:39 mupirocin 2 % topical ointment 2024 025 [facility] #30082, [address], [place], [id number], 10/29/2024 11:18:39 hydrocodo ne 10 mg-chlorp heniramin e 8 mg/5 mL oral susp extend.re l 12hr 2023 024 [facility] #[id number], [address], [place], [phone], 10/29/2024 11:00:40 prednison e 10 mg tablet 2023 025 [facility] #87015, [address], [place], [id number], 10/29/2024 11:01:18 fluticaso ne 500 mcg-salme terol 50 mcg/dose blistr powdr for inhalatio n 2023 024 [facility] #33261, [address], [place], [phone], 07/23/2024 11:47:54 Patient TargetsNo targets recorded. Patient Instructions Encounter Date Encounter Id Patient Instructions Last Modified By Organization Details Last Modified Time 02/28/2024 [id number] pneumonia: care instructions Not available 02/28/2024 09:41:55 Reason for Referral None Reported. Results Created Date Observation Date Name Description Value Unit Range Abnormal Flag Note LastModifiedBy Organization Detail LastModifiedTime 10/26/1910/26/2024 HbA1c (hemo globi n A1c), blood A1C 6.9 abnormal Not Available [facility] (Medical Records) [address] [place], [address], 10/29/2024 11:13:11 02/22/20 24 02/22/2024 XR, chest , 2 view No observ ation record ed. [email or web address] [address], [address], 02/24/2024 12:11:48 04/05/20 24 04/05/2024 XR, chest , 2 view No observ ation record ed. [email or web address] [address], [address], 2024 09:20:33 11/27/1911/22/2024 CT, abdom en + pelvi s, w/o contr ast No observ ation record ed. [email or web address] [address], [address], 11/27/2024 08:46:09 Result Notes None recorded. Problems Name Problem SNOMED Code Status Onset Date Resolution Date Notes Provider Name and Address Organization Details Recorded Time Hyperten sive disorder 49511848 Active 2017 Not Available [facility] 13:45:01 Impaired fasting glycemia 376888637 Completed 201710/19/2019 Elías Sosa, DO [address] [place], [address], [facility] 0 16:44:26 Degenera tion of lumbar interver tebral disc 50166641 Active 2017 Not Available [facility] 2 13:45:01 History of polyp of colon 485371719 Active 2017 Not Available [facility] 2 13:45:01 Osteoart hritis 486418008 Active 2018 Not Available [facility] 2 13:45:01 Type 2 diabetes mellitus 31172799 Active 2019 Not Available [facility] 2 13:45:01 Gastroes ophageal reflux disease 807472151 Active 2019 Not Available [facility] 2 13:45:01 Costal chondrit is 89267756 Active 2021 Elías Sosa, DO [address] [place] [address], [address], [facility] 2 16:26:27 Osteoart hritis of left knee joint 9227639297 59722 Active 2021 did well with replacem ent since nov has been back to work [employer] [facility] Elías Sosa, DO [address] [place] [address], [address], [facility] 3 16:18:47 Hypercho lesterol emia 34815470 Active 2022 Elías Sosa, DO [address] [place] [address], [address], [facility] 3 16:23:44 Calcific coronary arterios clerosis 96549407 Active 2022 Elías Sosa, DO [address] [place] [address], [address], [facility] 3 16:25:38 Low back pain 494836584 Active 2023 Elías Sosa DO [address] [place] [address], [address], [facility] 4 12:21:40 Pain of left hip joint 1854268791 09650 Active 2023 Elías FowlerAhsan Sosa, DO [address] [place] [address], [address], [facility] 4 12:22:12 Motion sickness 33882058 Active 2023 Elías Kennedy Hardik, DO [address] [place] [address], [address], [facility] 4 12:25:30 Allergic rhinitis 43309920 Active 2023 Elías JanethAhsan Sosa, DO [address] [place] [address], [address], [facility] 4 12:28:18 Bilatera l sacroili itis 6834420281 8189201 Active 2023 Elías JanethAhsan Sosa, DO [address] [place] [address], [address], [facility] 4 11:46:35 Pneumoni tis 113386659 Active 2023 Elías JanethAhsan Sosa, DO [address] [place] [address], [address], [facility] 4 10:42:21 Cough 10971946 Active 2023 Elías Sosa, DO [address] [place] [address], [address], [facility] 4 22:34:30 Pneumoni a 480713289 Active 2023 Elías Sosa, DO [address] [place] [address], [address], [facility] 4 00:37:56 Reactive airway disease 3228131682 06 Active 2023 Elías Sosa, DO [address] [place] [address], [address], [facility] 4 09:34:57 Follicul itis 94670007 Active 2024 Elías Sosa DO [address] [place] [address], [address], [facility] 5 11:17:05 Abdomina l pain 69054160 Active 2024 RIVKA ALBARRAN [address] [place] [address], [address], [facility] 5 10:54:23 Right inguinal pain 9405388456 6813223 Active 2024 RIVKA ALBARRAN [address] [place] [address], [address], [facility] 5 10:59:40 Bilatera l inguinal hernia 13550867 Active 2024 RIVKA ALBARRAN [address] [place] [address], [address], [facility] 5 13:47:47 Uncontro lled type 2 diabetes mellitus 812892176 Active 2024 Elías Sosa DO [address] [place] [address], [address], [facility] 5 21:39:36 Problem Notes None recorded. Procedures Surgical History Date Name Laterality Status Provider Name and Address Organization Details Recorded Time 6 Colonoscopy completed Mariela Palmer [facility] 08/25/2018 09:49:23 Imaging Results None recorded. Procedure Notes None recorded. Medical Equipment None Reported. Allergies Allergen ID Allergen Name Allergen Category Reaction Reaction Severity Criticality Documentation Date Start Date Code Code System Note Provider Name and Address Organization Details Recorded Time 8810 metformin medicatio n gi bleed Not available Not available 11/02/2024 6809 RxNorm Rell claire [facility] 5 14:37:13 8910 glipizide medicatio n nausea Not available low 11/28/2024 4821 RxNorm Elías oSsa DO [address] [place], [address], [facility] 5 15:58:07 Medications Name Sig Start Date Stop Date Status Note LastModified by Organization Details LastModified Time prednisone 10 mg tablet 10/29 completed Not Available Not Available Not Available sildenafil 50 mg tablet Take 1 tablet every day by oral route for 30 days. 06/18 completed Not Available Not Available Not Available azithromyci n 250 mg tablet TAKE 2 TABLETS BY MOUTH FOR DAY 1. THEN TAKE 1 TABLET BY MOUTH EVERY DAY FOR 4 DAYS. 10/29 completed Not Available Not Available Not Available ibuprofen 800 mg tablet TAKE 1 TABLET BY MOUTH EVERY 8 HOURS NEEDED 10/29 completed Not Available Not Available Not Available ondansetron HCl 4 mg tablet TAKE 1 TABLET BY MOUTH EVERY 6 HOURS NEEDED FOR NAUSEA OR VOMITING 09/17 completed Not Available Not Available Not Available glipizide ER 5 mg tablet, extended release 24 hr TAKE 1 TABLET BY MOUTH EVERY DAY 11/28 completed Not Available Not Available Not Available [...] Not Available Not Available No t Available glimepiride 4 mg tablet Take 1 tablet every day by oral route for 30 days. 2024 active Not Available Not Available Not Avai lable omeprazole 20 mg capsule,del ayed release TAKE 1 CAPSULE DAILY active Not Available Not Available No t Available mupirocin 2 % topical ointment APPLY SMALL AMOUNT TOPICALLY TO THE AFFECTED AREA THREE TIMES DAILY active Not Available Not Available No t Available lovastatin 20 mg tablet TAKE 1 TABLET DAILY 04/20 completed Not Available Not Available Not Available levofloxaci n 750 mg tablet TAKE 1 TABLET BY MOUTH EVERY DAY FOR 7 DAYS 10/29 completed Not Available Not Available Not Available scopolamine 1 mg over 3 days [...] MOUTH EVERY 12 HOURS FOR 7 DAYS 10/29 completed Not Available Not Available Not Available albuterol sulfate HFA 90 mcg/actuati on aerosol inhaler INHALE 2 PUFFS INTO THE LUNGS EVERY 6 HOURS NEEDED 10/29 completed Not Available Not Available Not Available ketoconazol e 2 % topical cream 08/25 completed Not Available Not Available Not Available losartan 100 mg tablet TK 1 T PO QD 11/07 completed Not Available Not Available Not Available fluticasone propionate 50 mcg/actuati on nasal spray,suspe nsion 08/25 completed Not Available Not Available Not Available metformin ER 500 mg tablet,exte nded release 24 hr TAKE 1 TABLET BY MOUTH EVERY DAY 11/12 completed Not Available Not Available Not Available [...] Not Available rosuvastati n 40 mg tablet TAKE 1 TABLET DAILY active Not Available Not Available No t Available tadalafil 20 mg tablet Take 1 tablet every day by oral route for 90 days. active Not Available Not Available No t Available losartan 100 mg-hydrochl orothiazide 12.5 mg tablet TAKE 1 TABLET DAILY active Not Available Not Available No t Available hydrochloro thiazide 12.5 mg tablet TK 1 T PO QD 11/07 completed Not Available Not Available Not Available Trulicity 0.75 mg/0.5 mL subcutaneou s pen injector Inject 0.5 mL every week by subcutane ous route for 30 days. 2024 active Not Available Not Available Not Avai rocio [facility] Inhub 500 mcg-50 mcg/dose powder for inhalation [...] and Address Organization Details Last Updated DateTime 5 177.8 cm 36.6 kg/m2 457603. 05 g 93 /min 99 % 99 % 152 mm[Hg] 84 mm[Hg] Elías Sosa, DO [address] [place], [address] [place] [address] Internal Medicine 5 10:59:43 Date Recorded Body height Body mass index (BMI) Body weight Heart rate Oxygen saturation Oxygen saturation in Arterial blood by Pulse oximetry Systolic blood pressure Diastolic blood pressure Provider Name and Address Organization Details Last Updated DateTime 5 177.8 cm 36 kg/m2 574610. 68 g 96 /min 98 % 98 % 154 mm[Hg] 84 mm[Hg] Nick Keys [facility] 5 10:49:23 Date Recorded Body height Body mass index (BMI) Body weight Heart rate Oxygen saturation Oxygen saturation in Arterial blood by Pulse oximetry Systolic blood pressure Diastolic blood pressure Provider Name and Address Organization Details Last Updated DateTime 4 177.8 cm 36.3 kg/m2 067012. 87 g 71 /min 97 % 97 % 130 mm[Hg] 70 mm[Hg] Dorothy Camacho [facility] 4 09:12:52 Date Recorded Body height Body mass index (BMI) Body weight Heart rate Oxygen saturation Oxygen saturation in Arterial blood by Pulse oximetry Systolic blood pressure Diastolic blood pressure Provider Name and Address Organization Details Last Updated DateTime 4 177.8 cm 36 kg/m2 386943. 68 g 103 /min 97 % 97 % 120 mm[Hg] 70 mm[Hg] [facility] 4 12:08:18 Date Recorded Body height Body mass index (BMI) Body weight Heart rate Oxygen saturation Oxygen saturation in Arterial blood by Pulse oximetry Systolic blood pressure Diastolic blood pressure Provider Name and Address Organization Details Last Updated DateTime 4 177.8 cm 36.2 kg/m2 290557. 28 g 92 /min 98 % 98 % 148 mm[Hg] 78 mm[Hg] Dorothy [facility] 4 11:37:10 Social History Question Answer Notes LastModified by Organizat ion Details LastModified Time Tobacco Smoking Status Former Smoker Not Available [facility] 07/01/2020 03:36:24 What Was The Date Of Your Most Recent Tobacco Screening? 11/12/2024 [email or web address] Information not available 11/12/2024 Sex: Unknown Functional Status Question Answer Note LastModified by Organization D etails LastModified Time Do you or have you ever used any other forms of tobacco or nicotine? No [email or web address] Information not available 05/10/2022 Mental Status None recorded. Family History Nothing Reported. Medical History No medical history recorded. Immunizations Vaccine Type Date Status Note Provider Nam e and Address Organization Details Recorded Time Influenza, split virus, quadrivalent, preservative 1 completed Not Available [facility] 08/23/2023 14:30:06 Tdap 1 completed Not Available [facility] 08/23/2023 14:30:06 COVID-19, mRNA, LNP-S, PF, 30 mcg/0.3 mL dose 1 completed Not Available [facility] 08/23/2023 14:30:06 COVID-19, mRNA, LNP-S, PF, 30 mcg/0.3 mL dose 1 completed Not Available [facility] 08/23/2023 14:30:06 COVID-19, mRNA, LNP-S, PF, 30 mcg/0.3 mL dose 2 completed Not Available [facility] 08/23/2023 14:30:06 influenza, unspecified formulation 2 completed Not Available [facility] 08/23/2023 14:30:06 Past Encounters Encounter ID Performer Location Encounter Start Date Encounter Closed Date Diagnosis/Indication Diagnosis SNOMED-CT Code Diagnosis ICD10 Code Diagnosis Note [id number] Elías Sosa DO [facility] [address] [facility] [address] 08/25/2018 10:15:10 08/25/2018 12:35:45 Hypertensive disorder 40132305 I10 bp is stable and is doing ok has lost some wgt \ tolerating meds no issues Impaired f asting glycemia 564768493 R73.01 will need to get some labwork atsome point [id number] Elías Sosa [facility] [address] [facility],[place] [address] 03/13/2019 10:40:15 03/13/2019 16:16:11 Hypertensive disorder 27862297 I10 bp is stable and is doing ok has lost some wgt \ tolerating meds no issues Impaired f asting glycemia 729259270 R73.01 will need to get some labwork now Hypercholesterolemia 136 31790 E78.00 needs fbw [id number] Elías Sosa [facility] [address] [facility],[place] [address] 08/17/2019 14:10:13 08/17/2019 14:33:11 Impaired fasting glycemia 428931223 R73.01 will need to get some labwork now Hypertensive disorder 38 245032 I10 bp is stable and is doing ok has lost some wgt \ tolerating meds no issues Fatigue 58095910 R53.83 including ED Primary er ectile dysfunction 949030372 N52.9 [id number] Elías Sosa [facility] [address] [facility], [place] [address] 10/19/2019 15:41:21 10/22/2019 08:36:17 Hypertensive disorder 25269703 I10 bp is stable and is doing ok has lost some wgt tolerating meds no issues Hypercholesterolemia 136 88962 E78.00 tolerating lovastatin well will do a repeat lipid panel since last one was done in 2018 Diabetes mellitus 652000 09 E11.9 will start with diet and exercise to see if can lower A1c and blood glucose [id number] Elías Sosa DO [facility] Internal Medicine [address] [facility], [place] [address] 02/04/2020 15:54:39 02/04/2020 16:42:53 Hypertensive disorder 01819490 I10 bp is stable and is doing ok has lost some wgt tolerating meds no issues Type 2 sheeba betes mellitus 72486827 E11.9 Gastroesop hageal reflux disease 960562536 K21.9 occ takes the prilosec or tums only on occasion Degenerati on of lumbar intervertebral disc 96235778 M51.36 lumbar antonieta ais good has flared recently and was about 2 weeks ago \relates otherwise it had abeen good Primary er ectile dysfunction 944631481 N52.9 [id number] Elías Kennedy Hardik [facility] [address] [facility], [place] [address] 06/18/2020 14:28:56 06/18/2020 14:51:23 Type 2 diabetes mellitus 06987804 E11.9 is utd in the preventiti ve aspects has good feet exam and is compliant with his eye eval a1c 7.3 Hypertensive disorder 38 952449 I10 bp is stable and is doing ok has lost some wgt tolerating meds no issues Immunization due 5217268 08 Z28.3 [id number] Elías Kennedy Hardik [facility] [address] [facility], [place] [address] 11/07/2020 15:20:20 11/07/2020 15:57:11 Type 2 diabetes mellitus 82011302 E11.9 is utd in the preventiti ve aspects has good feet exam and is compliant with his eye eval a1c 7.3 last time but needs test now Hypertensive disorder 38 408623 I10 bp is stable and is doing ok has lost some wgt tolerating meds no issues Gastroesop hageal reflux disease 166307335 K21.9 we are going to cont the omeprazole in case this turns out to be laryngeal reflux (ie the cough) Cough 04903707 R05 we will do a throat culture also we will treat him for an atypical org we will have him stop the losartan for a few days and then let me know how he is feeling also could also be a poss form of asthma Trigger fi nger of right hand 1398468176 0356232 M65.30 [id number] Elías Sosa [facility] [address] [facility],[place] [address] 11/28/2020 14:57:24 11/28/2020 15:30:46 Hypertensive disorder 07370077 I10 bp is stable and is doing ok has lost some wgt tolerating meds no issues Esophageal dysphagia 408 71641 R13.19 coughing after each meal /??if this is esoph dysmotilit y v. diverticul um v stricture? ? Pain in fi nger of right hand 2156922881 71062 M79.644 [id number] Elías Sosa [facility] [address] [facility], [place] [address] 09/18/2021 08:27:13 09/18/2021 13:39:06 Hypertensive disorder 80350343 I10 bp is stable and is doing ok has lost some wgt tolerating meds no issues Type 2 sheeba betes mellitus 30647950 E11.9 is utd in the preventiti ve aspects has good feet exam and is compliant with his eye eval a1c 7.3 last time but needs test now Gastroesop hageal reflux disease 801381187 K21.9 we are going to cont the omeprazole in case this turns out to be laryngeal reflux (ie the cough) Primary er ectile dysfunction 108804266 N52.9 [id number] Elías Sosa [facility] [address] [facility],[place] [place] [address] 01/18/2022 15:53:03 01/19/2022 14:52:27 Gastroesophageal reflux disease 086497984 K21.9 we are going to cont the omeprazole in case this turns out to be laryngeal reflux (ie the cough) Type 2 sheeba betes mellitus 74747439 E11.9 is utd in the preventiti ve aspects has good feet exam and is compliant with his eye eval a1c 7.3 last time but needs test now Hypertensive disorder 38 232138 I10 bp is stable and is doing ok has lost some wgt and this will continue tolerating meds no issues Active or passive immunization 001501811 Z23 patient advised of vaccines due Costal chondritis 619157 04 M94.0 will use advil and call if unhelpful [id number] Elías Sosa [facility] [address] [facility],[place] [address] 05/10/2022 15:14:47 05/10/2022 16:00:12 Type 2 diabetes mellitus 80186122 E11.9 is utd in the preventiti [facility] has good feet exam and is compliant with his eye eval a1c 6.0 last time but needs test now Hypertensive disorder 38 183457 I10 bp is stable and is doing ok has lost some wgt and this will continue tolerating meds no issues Osteoarthr itis of left knee joint 5353660244 23979 M17.12 getting knee replacemen t in june Elías Sosa [facility] [address] [facility],[place] [address] 09/17/2022 14:58:42 09/17/2022 16:00:26 Type 2 diabetes mellitus 83117375 E11.9 [facility] and is compliant with his eye eval a1c .6.5 last time but needs test now Hypertensive disorder 38 321546 I10 bp is stable and is doing ok has lost some wgt and this will continue tolerating meds no issues [id number] lEías Sosa [facility] [address] [facility],[place] [place] [address] 12/27/2022 15:21:50 12/27/2022 16:50:34 Type 2 diabetes mellitus 78978915 E11.9 is utd in the preventiti [facility] has good feet exam and is compliant with his eye eval a1c .is pending! last was in apr was 6.5 last time but needs test now Hypertensive disorder 38 079242 I10 bp is stable and is doing ok has lost some wgt and this will continue tolerating meds no issues Osteoarthr itis of left knee joint 7551251542 66737 M17.12 getting knee replacemen t in june Elías Sosa DO [facility] Internal Medicine [address] [facility] [address],[place] [address] 04/20/2023 15:22:49 04/20/2023 16:30:57 Hypertensive disorder 34438030 I10 bp is stable and is doing ok has lost some wgt and this will continue tolerating meds no issues Type 2 sheeba betes mellitus 30269769 E11.9 is utd in the preventiti ve aspects has good feet exam and is compliant with his eye eval a1c .is 5.6 last was in apr was 6.5 last time but needs test now Hypercholesterolemia 136 28077 E78.00 given coronary calcium score we will have him switch to rosuvastat in and get cardiology appt Calcific c oronary arteriosclerosis 46323048 I25.10 [id number] Elías Sosa [facility] [address] [facility] [address],[place] [address] 11/28/2023 11:52:18 11/28/2023 13:54:26 Type 2 diabetes mellitus 07305283 E11.9 is utd in the preventiti ve aspects has good feet exam and is compliant with his eye eval a1c .is 6.2 prior was 5.6 last was in apr was 6.5 last time but needs test now Hypercholesterolemia 136 31025 E78.00 Prior : given coronary calcium score we will have him switch to rosuvastat in and get cardiology appt Low back pain 142636942 M54.50 tremayne l start with xrays of these areas Pain of le ft hip joint [id number] 91437 M25.552 will get pelvis too Motion sickness 02161499 T75.3XXA Allergic rhinitis 018676 04 J30.9 will try zyrtec [id number] Elías Sosa DO [facility] Internal Medicine [address] [facility] [address] [address] 12/19/2023 11:09:03 12/19/2023 12:01:18 Bilateral sacroiliitis [id number] M46.1 [id number] Elías Sosa [facility] Internal Medicine [address] [facility] [address] [address] 02/13/2024 10:07:32 02/13/2024 10:51:41 Depression screening 662438134 Z13.31 Negative Pneumonitis 134670897 J1 8.9 Primary er ectile dysfunction 122913187 N52.9 [id number] Elías Sosa [facility] Internal Medicine [address] [facility] [address],[place] [address] 02/28/2024 08:56:26 02/28/2024 14:47:09 Pneumonia 553961999 J18.9 full week levofloxac in 750add pred taper Reactive a irway disease 2058020035 06 J45.909 will need taper [id number] Elías Sosa [facility] Internal Medicine [address] [facility] [address],[place] [address] 03/12/2024 12:03:11 03/13/2024 09:08:17 Pneumonitis 722582522 J18.9 [id number] Elías Sosa [facility] Internal Medicine [address] [facility] [address],[place] [address] 07/23/2024 11:33:48 07/23/2024 11:54:46 Hypercholesterolemia 48185562 E78.00 Prior : given coronary calcium score we will have him switch to rosuvastat in and get cardiology appt Hypertensive disorder 38 885309 I10 bp is stable and is doing ok has lost some wgt and this will continue tolerating meds no issues Osteoarthr itis of left knee joint 1934635708 73391 M17.12 getting knee replacemen t in june Type 2 sheeba betes mellitus 24896337 E11.9 is utd in the preventiti ve aspects has good feet exam and is compliant with his eye eval a1c .is 6.2 prior was 5.6 last was in apr was 6.5 last time but needs test now [id number] Elías Sosa [facility] Internal Medicine [address] [facility] [address],[place] [address] 10/29/2024 10:54:33 10/29/2024 11:36:05 Hypercholesterolemia 32453048 E78.00 Prior : given coronary calcium score we will have him switch to rosuvastat in and get cardiology appt Hypertensive disorder 38 420320 I10 bp is stable and is doing ok has lost some wgt and this will continue tolerating meds no issues Type 2 sheeba betaimee mellitus 57140420 E11.9 is utd in the preventiti ve aspects has good feet exam and is compliant with his eye eval a1c .was 7.2 and is now donwn to 6,9 prior 6.2 prior was 5.6 last was in apr was 6.5 last time but needs test now Osteoarthr itis of left knee joint 1227275166 32826 M17.12 getting knee replacemen t in june Depression screening 171 809377 Z13.31 Negative Folliculitis 49990566 L7 3.9 prob some impetigo as well Active or passive immunization 050898836 Z23 patient advised of vaccines due [id number] Elías Sosa DO [facility] Internal Medicine [address] [facility],[place] [address] 11/12/2024 10:40:38 11/12/2024 14:26:53 Abdominal pain 89293556 R10.31 will set up with abdominal scan ?hernia vs kidney stone Right inguinal pain 1562 588025 [address] R10[address] Health Concerns Section Related Observation LastModified by Organization Detai ls LastModified Time None Recorded Concern Status LastModified by Organization Details LastModified Time None Recorded Advance Directives Directive None Recorded Payers Encounter Date Sequence Insurance Name Policy Number Policy [employer] Covered Member ID [employer] Member ID Guarantor Name 02/28/2024 1 [place] [id number] Mj T Halket [id number] Mj T Halket 03/12/2024 1 [place] [id number] Mj T Halket [id number] Mj T Halket 07/23/2024 1 [place] [id number] Mj T Halket [id number] Mj T Halket 10/29/2024 1 [place] [id number] Mj T Halket [id number] Mj T Halket 11/12/2024 1 [place] [id number] Mj T Halket [id number] Mj Quiles Notes Date Note Type Note Provider Name and Address Organization Details Recorded Time 4 text/htm miroslava is on 5th day of levaquin and is still coughing and wheezing with no improvement in his sx still wheezing and having coughing fits hard to sleep hears himself wheezing Elías Sosa DO [address] [place], [address], [facility] Internal Medicine 02/28/2024 09:42:43 4 text/htm l here for rechk and is doing much better overallcough has abated and relates he is doing greatfeels much better now and inhalers and abx have gotten better and is now back to baseline Elías Sosa DO [address] [place], [address], [facility] 03/12/2024 12:29:39 4 text/htm l [...] overall feels well still takes omeprazole Elías Sosa DO [address] [place], [address], [facility] 07/23/2024 11:54:16 5 text/htm l here for rechk and is doing ok overall has lost 5lbsseeing dr garcía who wants his LDL below 70wants him to drop Elías Sosa DO [address] [place], [address], [facility] 10/29/2024 11:31:43 5 text/htm l c/o abdominal pain the patient gets lower R and L quadrant fluttering sensation the patient denies fever or chills or urinary symptoms or bowel changes the patient denies any flank painthe patient reports that he always gets the right sided groin painpain is sharp and only lasts a few seconds to a minutesno correlation, denies any bulges or lumps when it's happening in the abdomen or groin area no pain with palpating today, no symptoms today recommended CT, could be fu things like hernia vs constipation vs kidney stone given location and presentation RIVKA ALBARRAN [address] [place], [address], [facility] Internal Medicine 11/12/2024 10:59:53
[2025-01-23 13:36] LABS: Estimated Average Glucose 148 mg/dL; Hemoglobin A1C 188.1895 umol/L; Hemoglobin A1c % 6.8 % (<6.0); Total Hemoglobin (HGBA1C) 3715.6482 umol/L
[2025-01-24 04:54] LABS: Rubella IgG Antibody <0.90 Index; Rubeola IgG (Measles) <13.50 AU/mL; Varicella IgG Antibody 3.01 S/CO
== END 2025-01-23 09:47 | disposition home or self-care (01) ==
LOC: HO.MANLDS 09:46
PROVIDERS: Visit Provider Internal Medicine
DX: E11.9 Type 2 diabetes mellitus without complications (principal)
CPT/HCPCS: 36415; 83036; 86735; 86762; 86765; 86787

== ENCOUNTER 2025-05-29 18:59 | Outpatient (REF) | payer BC, SELFPAY ==
--- OUTSIDE RECORDS SUMMARY | 2025-05-29 19:02 | XMS_ITS | Encounter Summary ---
Author Organization [facility] Address [address] [place] [address] Phone Care Team Providers Care Icer Machine Operator Name Role Phone Elías Dye Primary Care Provider [phone] BernaElías ricketts Unavailable Encounter Details Date Type Department Care Team (Late Contact Info) Description 11/12/2020 Ancillary Orders Virtual Department [address] [place] [address] Elías Dye DO [address] [facility] [place] [address] [place] [address] [email or web address] Finger pain, right Social History Tobacco Use Types Packs/Day Years Used Date Smoking Tobacco: Never Smokeless Tobacco: Never Alcohol Use Standard Drinks/Week Comments Yes 24 (1 standard drink = 0.6 oz pu re alcohol) Sex and Gender Information Value Date Recorded Sex Assigned at Not on file Legal Sex Male 9:35 PM EDT Gender Identity Not on file Sexual Orientation Not on file documented as of this encounter Plan of Treatment Upcoming Encounters Date Type Department Care Team (Late Contact Info) Description 08/28/2025 7:40 AM EST Office Visit [facility] [address] [place] [address] 3rd Floor, [address] [place] [address] Jimbo García MD [address] [facility], [address] [place] [id number] documented as of this encounter Results * XR FINGER 2 OR MORE VIEWS (RIGHT) (11/12/2020 4:50 PM EDT) Anatomical Region Laterality Modality Hand Right Computed Radiogr aphy 11/12/2020 5:16 PM EDT Impressions 11/12/2020 5:16 PM EDT Unremarkable plain film appearance of the second finger. POS [id number] Narrative 11/12/2020 5:16 PM EDT 4 views. No comparison No evidence of trauma, tumor or infection. No significant arthritic changes. No opaque foreign bodies or soft tissue calcifications. Deformity of the distal fifth metacarpal shaft is incidentally noted from an old, healed boxer's fracture. Procedure Note Melvin Serrano MD - 11/12/2020 4 views. No comparison No evidence of trauma, tumor or infection. No significant arthritic changes. No opaque foreign bodies or soft tissue calcifications. Deformity of the distal fifth metacarpal shaft is incidentally noted froman old, healed boxer's fracture. IMPRESSION: Unremarkable plain film appearance of the second finger. POS [id number] Elías Dye DO IMG XR UPPER EXTREMITY Final Res ult documented in this encounter Visit Diagnoses Diagnosis Finger pain, right Pain in soft tissues of limb Finger pain, right Pain in soft tissues of limb documented in this encounter Care Teams Icer Machine Operator Relationship Specialty Start Date End Date Elías Dye DO [email or web address] PCP - General Internal Medicine 12/11/17 Elías Dye DO [address] [place] [address] [email or web address] Insurance Assigned Provider 12/03/23 documented as of this encounter Additional Source Comments The information contained in this document represents components of the legal health record. It is not the complete legal health record.[facility]
--- OUTSIDE RECORDS SUMMARY | 2025-05-29 19:02 | XMS_ITS | Encounter Summary ---
Author Organization [facility] Address [address] [place] [address] Phone Care Team Providers Care Plastic Printer Name Role Phone Elías Dye Primary Care Provider [phone] BernaElías ricketts DO Unavailable Encounter Details Date Type Department Care Team (Late st Contact Info) Description 03/12/2024 Transcribe Orders Virtual Department [address] [place] [address] Elías Dye DO [address] [facility] [place] [address] Pneumonia due to infectious organism, unspecified laterality, unspecified part of lung (Primary Dx) Social History Tobacco Use Types Packs/Day Years Used Date Smoking Tobacco: Never Smokeless Tobacco: Never Alcohol Use Standard Drinks/Week Comments Yes 24 (1 standard drink = 0.6 oz pu re alcohol) Education Answer Date Recorded Are you interested in more education? Not on cynthia e 12/24/2022 Are you concerned about learning? Not on file 12/24/2022 No 12/24/2022 No 12/24/2022 Digital Access Answer Date Recorded No 01/22/2023 No 01/22/2023 Reliable internet access at home? Not on file 01/22/2023 Device with a working camera? Not on file Sex and Gender Information Value Date Recorded Sex Assigned at Not on file Legal Sex Male 9:35 PM EDT Gender Identity Not on file Sexual Orientation Not on file documented as of this encounter Plan of Treatment Upcoming Encounters Date Type Department Care Team (Late st Contact Info) Description 08/28/2025 7:40 AM EST Office Visit [facility] [address] [facility] 3rd Floor, [address] [place] [address] Jimbo García MD [address] [facility], [address] [place] [address] [email or web address] documented as of this encounter Results * XR CHEST PA AND LATERAL 2 VIEWS (04/05/2024 10:38 AM EDT) Anatomical Region Laterality Modality Chest Computed Radiogr aphy 04/05/2024 12:0 0 PM EDT Impressions 04/05/2024 12:03 PM EDT 1. Improving aeration of the right middle lobe when compared to 02/22/2024 suggestive of improving pneumonia. There is mild residual opacity which is predominantly reticular which may be atelectatic. 2. Decrease and near resolution of fluid tracking in the right minor fissure. Narrative 04/05/2024 12:03 PM EDT XR CHEST PA AND LATERAL 2 VIEWS Referring clinician's provided indication for this examination in Epic: Pneumonia; pneumonia COMPARISON: XR CHEST PA AND LATERAL 2 VIEWS FINDINGS: Devices/Tubes/Lines: None. Lungs: There has been improved aeration of the right middle lobe when compared to prior exam with a small amount of residual opacity remaining which is predominantly reticular. The left lung is without parenchymal consolidation. Pleura: There is improved fluid seen in the right minor fissure, now trace. No left pleural effusion is seen. There is no pneumothorax. Heart/Mediastinum: Normal in size and contour. Bones/Soft Tissues: There is a mild dextroconvex curvature lower thoracic and upper lumbar spine with mild multilevel degenerative change. There is chronic anterior wedging of a few mid and lower thoracic vertebral bodies. Procedure Note Emanuel Prasad MD - 04/05/2024 XR CHEST PA AND LATERAL 2 VIEWS Referring clinician's provided indication for this examination in Epic:Pneumonia; pneumonia COMPARISON: XR CHEST PA AND LATERAL 2 VIEWS FINDINGS: Devices/Tubes/Lines: None. Lungs: There has been improved aeration of the right middle lobe whencompared to prior exam with a small amount of residual opacity remainingwhich is predominantly reticular. The left lung is without parenchymalconsolidation. Pleura: There is improved fluid seen in the right minor fissure, nowtrace. No left pleural effusion is seen. There is no pneumothorax. Heart/Mediastinum: Normal in size and contour. Bones/Soft Tissues: There is a mild dextroconvex curvature lower thoracicand upper lumbar spine with mild multilevel degenerative change. There ischronic anterior wedging of a few mid and lower thoracic vertebralbodies. IMPRESSION: 1. Improving aeration of the right middle lobe when compared to 02/22/2024suggestive of improving pneumonia. There is mild residual opacity which ispredominantly reticular which may be atelectatic. 2. Decrease and near resolution of fluid tracking in the right minorfissure. Elías Dye DO IMG XR CHEST Final Result documented in this encounter Visit Diagnoses Diagnosis Pneumonia due to infectious organism, unspecified laterality, unspecified part of lung- Primary Pneumonia due to infectious organism, unspecified laterality, unspecified part of lung documented in this encounter Care Teams Plastic Printer Relationship Specialty Start Date End Date Elías Dye DO PCP - General Internal Medicine 12/11/17 Elías Dye DO [address] [place] [address] Insurance Assigned Provider 12/03/23 documented as of this encounter Additional Source Comments The information contained in this document represents components of the legal health record. It is not the complete legal health record.[facility]
--- OUTSIDE RECORDS SUMMARY | 2025-05-29 19:02 | XMS_ITS | Encounter Summary ---
Author Organization [facility] Address [address] [place] [address] Phone Care Team Providers Care Associate Professor Of Art History Name Role Phone Elías Dye Primary Care Provider [phone] BernaElías ricketts Unavailable Reason for Referral * MRI/CAT Scan - Closed Specialty Diagnoses / Procedures Referred By Erika rivera Referred To Contact Radiology Diagnoses RLQ abdominal pain Procedures CT Abdomen/Pelvis CHG CT SCAN,ABDOMENT AND PELVIS,W/O CONTRAST CHG CT SCAN,ABDOMENT AND PELVIS,W CONTRAST CHG CT SCAN,ABDOMENT AND PELVIS,COMBO La Torres PA [address] [facility] [place] [address] Phone: tel: fax: Referral ID Status Reason Start Date Expiration Date Visits Re quested Visits Authorized [id number] Closed 11/12/2024 01/10/2025 1 1 Encounter Details Date Type Department Care Team (Latest Contact Info) Description 11/13/2024 Transcribe Orders Virtual Department [address] [place] [address] La Torres PA [address] [facility] [place] [address] RLQ abdominal pain (Primary Dx) Social History Tobacco Use Types [...] Description 08/28/2025 7:40 AM EST Office Visit [facility] [address] [place] [address] [address]rd Floor, [address] [place] [address] Jimbo García MD [address] [facility], [address] [place] [address] [email or web address] documented as of this encounter Results * CT ABDOMEN/PELVIS WITHOUT CONTRAST (11/22/2024 5:59 PM EDT) Anatomical Region Laterality Modality Abdomen, Pelvis Computed Tomogra phy 11/26/2024 9:33 PM EDT Impressions 11/26/2024 9:40 PM EDT 1. No acute abdominopelvic pathology. No evidence of nephroureterolithiasis. 2. Small bilateral fat-containing hernias. Narrative 11/26/2024 9:[address] ABDOMEN/PELVIS WITHOUT CONTRAST Referring clinician's provided indication for this examination in Epic: Outside Radiology Order; abdomen pain TECHNIQUE: Multidetector-row CT of the abdomen and pelvis was performed without intravenous contrast using tailored dose modulation techniques. Images were reconstructed in the axial, coronal, and sagittal planes. COMPARISON: None ABSENCE OF INTRAVENOUS CONTRAST DECREASES SENSITIVITY FOR DETECTION OF FOCAL LESIONS AND VASCULAR PATHOLOGY. FINDINGS: Lower Chest: No consolidation or pleural effusions. Liver: No focal lesions. Biliary: No biliary ductal dilatation. Trace hyperdense layering sludge versus small stones. No evidence of acute cholecystitis. Spleen: The splenic size is at the upper limit of normal measuring 13 cm in length. No focal lesions. Pancreas: No masses or ductal dilatation. Adrenal Glands: No nodules. Kidneys/Ureters: No solid masses, stones, or hydronephrosis. Bowel: Tiny hiatal hernia. No abnormal bowel wall thickening or dilatation. The appendix is normal. Peritoneum/Retroperitoneum: No masses, pneumoperitoneum, or fluid. Lymph Nodes: No lymphadenopathy. Pelvic Organs/Bladder: No mass. No abnormal bladder wall thickening. Vessels: No abdominal aortic aneurysm. Bones/Soft Tissues: No destructive osseous lesions. Mild right hip joint degenerative changes. Multilevel anterior bridging osteophytes noted in the lower thoracic spine, a finding which can be seen in the setting of diffuse idiopathic skeletal hyperostosis (DISH). Small bilateral fat-containing inguinal hernias. Small fat-containing periumbilical hernia noted. Procedure Note Monica Ramirez MD - 11/26/2024 CT ABDOMEN/PELVIS WITHOUT CONTRAST Referring clinician's provided indication for this examination in Epic:Outside Radiology Order; abdomen pain TECHNIQUE: Multidetector-row CT of the abdomen and pelvis was performedwithout intravenous contrast using tailored dose modulation techniques.Images were reconstructed in the axial, coronal, and sagittal planes. COMPARISON: None ABSENCE OF INTRAVENOUS CONTRAST DECREASES SENSITIVITY FOR DETECTION OFFOCAL LESIONS AND VASCULAR PATHOLOGY. FINDINGS: Lower Chest: No consolidation or pleural effusions. Liver: No focal lesions. Biliary: No biliary ductal dilatation. Trace hyperdense layering sludgeversus small stones. No evidence of acute cholecystitis. Spleen: The splenic size is at the upper limit of normal measuring 13 cmin length. No focal lesions. Pancreas: No masses or ductal dilatation. Adrenal Glands: No nodules. Kidneys/Ureters: No solid masses, stones, or hydronephrosis. Bowel: Tiny hiatal hernia. No abnormal bowel wall thickening ordilatation. The appendix is normal. Peritoneum/Retroperitoneum: No masses, pneumoperitoneum, or fluid. Lymph Nodes: No lymphadenopathy. Pelvic Organs/Bladder: No mass. No abnormal bladder wall thickening. Vessels: No abdominal aortic aneurysm. Bones/Soft Tissues: No destructive osseous lesions. Mild right hip jointdegenerative changes. Multilevel anterior bridging osteophytes noted inthe lower thoracic spine, a finding which can be seen in the setting ofdiffuse idiopathic skeletal hyperostosis (DISH). Small bilateral fat-containing inguinal hernias. Small fat-containing periumbilical hernia noted. IMPRESSION: 1. No acute abdominopelvic pathology. No evidence ofnephroureterolithiasis. 2. Small bilateral fat-containing hernias. La TINEO IMG CT ABD/PELVIS Final Res ult documented in this encounter Visit Diagnoses Diagnosis RLQ abdominal pain- Primary Abdominal pain, right lower quadrant RLQ abdominal pain Abdominal pain, right lower quadrant documented in this encounter Care Teams Associate Professor Of Art History Relationship Specialty Start Date End Date Elías Dye DO PCP - General Internal Medicine 12/11/17 Elías Dye DO [address] [place] [address] Insurance Assigned Provider 12/03/23 documented as of this encounter Additional Source Comments The information contained in this document represents components of the legal health record. It is not the complete legal health record.[facility]
--- OUTSIDE RECORDS SUMMARY | 2025-05-29 19:02 | XMS_ITS | Encounter Summary ---
Author Organization [facility] Address [address] [place] [phone] Phone Care Team Providers Care Senior Telecommunications Engineer Name Role Phone Elías Dye Primary Care Provider [phone] BernaElías ricketts Unavailable Encounter Details Date Type Department Care Team (Late st Contact Info) Description 11/28/2023 Transcribe Orders Virtual Department [address] [place] [address] Elías Dye DO [address] [place] [address] [email or web address] Low back pain, unspecified back pain laterality, unspecified chronicity, unspecified whether sciatica present (Primary Dx); Left hip pain Social History Tobacco Use Types Packs/Day Years [...] Description 08/28/2025 7:40 AM EST Office Visit [facility] [address] [place] [address] [address]rd Floor, [address] [place] [address] Jimbo García MD [address] [facility], [address] [place] [address] [email or web address] documented as of this encounter Results * XR LUMBOSACRAL SPINE 2-3 VIEWS (11/28/2023 2:13 PM EDT) Anatomical Region Laterality Modality L-spine Computed Radiogr aphy 11/30/2023 3:32 PM EDT Impressions 11/30/2023 3:34 PM EDT Degenerative change in the lower lumbar spine, without acute osseous abnormality. Degenerative findings in both sacroiliac joints, which are atypical in appearance, with possible ankylosis. Mild degenerative change in both hips, only partially visualized on the right. Narrative 11/30/2023 3:34 PM EDT XR HIP 2 VW LEFT PLUS PELVIS, XR LUMBOSACRAL SPINE 2-3 VIEWS Referring clinician's provided indication for this examination in Epic: Outside Radiology Order; left hip pain COMPARISON: No relevant comparison. FINDINGS: Lumbosacral spine: Mild retrolisthesis of L4 on L5. Vertebral body heights are maintained. Mild degenerative disease at L4-L5. Moderate degenerative disc disease at L5-S1. Mild facet arthropathy, most notable in the lower lumbar spine. Degenerative change in possible ankylosis of the sacroiliac joints, which are typical in appearance. Sacrum is obscured. Left hip: No fracture or dislocation. Mild degenerative change. Additional mild degenerative findings in the partially visualized right hip. Multifocal pelvic enthesopathy. Procedure Note Vin Figueroa MD - 11/30/2023 XR HIP 2 VW LEFT PLUS PELVIS, XR LUMBOSACRAL SPINE 2-3 VIEWS Referring clinician's provided indication for this examination in [facility]:Outside Radiology Order; left hip pain COMPARISON: No relevant comparison. FINDINGS: Lumbosacral spine: Mild retrolisthesis of L4 on L5. Vertebral body heightsare maintained. Mild degenerative disease at L4-L5. Moderate degenerativedisc disease at L5-S1. Mild facet arthropathy, most notable in the lowerlumbar spine. Degenerative change in possible ankylosis of the sacroiliacjoints, which are typical in appearance. Sacrum is obscured. Left hip: No fracture or dislocation. Mild degenerative change. Additionalmild degenerative findings in the partially visualized right hip.Multifocal pelvic enthesopathy. IMPRESSION: Degenerative change in the lower lumbar spine, without acute osseousabnormality. Degenerative findings in both sacroiliac joints, which are atypical inappearance, with possible ankylosis. Mild degenerative change in both hips, only partially visualized on theright. us Elías A Bigda DO IMG XR SPINE Final Result * XR HIP 2 VW LEFT PLUS PELVIS (11/28/2023 2:13 PM EDT) Anatomical Region Laterality Modality Hip, Pelvis Computed Radiogr aphy 11/30/2023 3:32 PM EDT Impressions 11/30/2023 3:34 PM EDT Degenerative change in the lower lumbar spine, without acute osseous abnormality. Degenerative findings in both sacroiliac joints, which are atypical in appearance, with possible ankylosis. Mild degenerative change in both hips, only partially visualized on the right. Narrative 11/30/2023 3:34 PM EDT XR HIP 2 VW LEFT PLUS PELVIS, XR LUMBOSACRAL SPINE 2-3 VIEWS Referring clinician's provided indication for this examination in [facility]: Outside Radiology Order; left hip pain COMPARISON: No relevant comparison. FINDINGS: Lumbosacral spine: Mild retrolisthesis of L4 on L5. Vertebral body heights are maintained. Mild degenerative disease at L4-L5. Moderate degenerative disc disease at L5-S1. Mild facet arthropathy, most notable in the lower lumbar spine. Degenerative change in possible ankylosis of the sacroiliac joints, which are typical in appearance. Sacrum is obscured. Left hip: No fracture or dislocation. Mild degenerative change. Additional mild degenerative findings in the partially visualized right hip. Multifocal pelvic enthesopathy. Procedure Note Vin Figueroa MD - 11/30/2023 XR HIP 2 VW LEFT PLUS PELVIS, XR LUMBOSACRAL SPINE 2-3 VIEWS Referring clinician's provided indication for this examination in Epic:Outside Radiology Order; left hip pain COMPARISON: No relevant comparison. FINDINGS: Lumbosacral spine: Mild retrolisthesis of L4 on L5. Vertebral body heightsare maintained. Mild degenerative disease at L4-L5. Moderate degenerativedisc disease at L5-S1. Mild facet arthropathy, most notable in the lowerlumbar spine. Degenerative change in possible ankylosis of the sacroiliacjoints, which are typical in appearance. Sacrum is obscured. Left hip: No fracture or dislocation. Mild degenerative change. Additionalmild degenerative findings in the partially visualized right hip.Multifocal pelvic enthesopathy. IMPRESSION: Degenerative change in the lower lumbar spine, without acute osseousabnormality. Degenerative findings in both sacroiliac joints, which are atypical inappearance, with possible ankylosis. Mild degenerative change in both hips, only partially visualized on theright. Elías Dye DO IMG XR PELVIS Final Result documented in this encounter Visit Diagnoses Diagnosis Low back pain, unspecified back pain laterality, unspecified chronicity, unspecified whether sciatica present- Primary Left hip pain Pain in joint, pelvic region and thigh Left hip pain Pain in joint, pelvic region and thigh Low back pain, unspecified back pain laterality, unspecified chronicity, unspecified whether sciatica present documented in this encounter Care Teams Senior Telecommunications Engineer Relationship Specialty Start Date End Date Elías Dye DO PCP - General Internal Medicine 12/11/17 Elías Dye DO [address] [place] [address] [email or web address] Insurance Assigned Provider 12/03/23 documented as of this encounter Additional Source Comments The information contained in this document represents components of the legal health record. It is not the complete legal health record.[facility]
--- OUTSIDE RECORDS SUMMARY | 2025-05-29 19:02 | XMS_ITS | Clinical Summary ---
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 Active losartan-hydroCHL OROthiazide (HYZAAR) 100-12.5 mg per tablet Take 1 tablet by mouth daily. Active tadalafiL (CIALIS, ADCIRCA) 20 MG tablet Take 20 mg by mouth daily as needed. 3 Active omeprazole (PRILOSEC) 20 MG capsule Take 20 mg by mouth as needed. 3 Active rosuvastatin (CRESTOR) 40 MG tablet Take 1 tablet (40 mg total) by mouth daily. 90 tablet 3 4 Active TRULICITY 0.75 mg/0.5 mL subcutaneous injection Inject 0.75 mg under the skin every 7 days. Active cholecalciferol (VITAMIN D3) 25 MCG (1,000 unit) tablet Take 1,000 Units by mouth daily. Active ascorbic acid, vitamin C, (VITAMIN C) 500 MG tablet Take 500 mg by mouth daily. Active Active Problems No known active problems Social History Tobacco Use Types Packs/Day Years Used Date Smoking Tobacco: Never Smokeless Tobacco: Never Tobacco Cessation:Counseling Given: Not Answered Alcohol Use Standard Drinks/Week Comments Yes 24 [...] on file Sexual Orientation Not on file Last Filed Vital Signs Vital Sign Reading Time Taken Comments Blood Pressure 116/64 02/21/2025 1:12 PM EDT Pulse 88 02/21/2025 1:12 PM EDT Temperature 37.1 C (98.7 F) 02/21/2025 1:12 PM EDT Respiratory Rate 16 02/07/2024 4:58 PM EDT Oxygen Saturation 95% 02/21/2025 1:12 PM EDT Inhaled Oxygen Concentration - - Weight 110.7 kg (244 lb) 02/21/2025 1:12 PM EDT Height 177.8 cm (5' 10 ) 02/21/2025 1:12 PM EDT Body Mass Index 35.01 02/21/2025 1:12 PM EDT Plan of Treatment Upcoming Encounters Date Type Department Care Team (Late st Contact Info) Description 08/28/2025 7:40 AM EST Office Visit [facility] [address] [place] [address] [address]rd Floor, [address] [place] [address] Jimbo García MD [address] [facility], [address] [place] [address] [email or web address] Health Maintenance Due Date Last Done Comments CREATININE LEVEL 1970 POTASSIUM LEVEL 1970 DEPRESSION SCREENING 1982 HEPATITIS C SCREENING 1988 HIV ONE-TIME SCREENING (18-6 5 YEARS) 1988 COLOGUARD 2015 FIT TEST 2015 FOBT 2015 SIGMOIDOSCOPY 2015 VIRTUAL COLONOSCOPY 2015 PNEUMOCOCCAL VACCINES (50+ years) (1 of 1 - PCV) 2020 ZOSTER VACCINES (1 of 2) 2020 INFLUENZA VACCINE (#1) 2025 , 08/11/2022, 08/07/2021 COVID-19 VACCINE (4 - 2024-2 6 season) 2025 09/16/2021, 12/11/2020, 11/20/2020 BLOOD PRESSURE 08/23/2025 02/21/2025 SCREENING FOR DIABETES 03/28/2026 03/28/2023 COLONOSCOPY 10/31/2030 10/31/2020 COLORECTAL CANCER SCREENING 10/31/2030 Adult Td,Tdap Booster 08/07/2031 08/07/2021 , 02/19/2011 SMOKING STATUS SCREENING (On ce After 26 Yrs) Completed 02/21/2025 HEPATITIS A VACCINES Aged Out No long er eligible based on patient's age to complete this topic HIB VACCINES Aged Out No longer eligi ble based on patient's age to complete this topic MENINGOCOCCAL VACCINES (ACWY) Aged Out No longer eligible based on patient's age to complete this topic MENINGOCOCCAL VACCINES (B) Aged Out N o longer eligible based on patient's age to complete this topic Medical Devices Not on file Procedures Procedure Name Priority Date/Time Associated Diagnosis Comments ENDOSCOPY, COLON 10/31/2020 11:1 0 AM EST from Last 3 Months or Most Recently Relevant to Health Maintenance Results * ENDOSCOPY, COLON (10/31/2020 11:10 AM EST) Narrative Transcriptions Doni Nugyen MD - 10/31/2020 11:10 AM EST Patient Name: Mj Quiles Attending MD:: DONI NGUYEN MD Procedure Date: 10/31/2020 11:10 AM Date of : 1970 Age: 50 Admit Type: Outpatient Gender: Male Room: [place] [address] Referring MD: ANATOLIY SOSA DO Exam Type: Colonoscopy Indications: High risk colon cancer surveillance: Personalhistory of colonic polyps, Last colonoscopy: 2015 Medications: Monitored Anesthesia Care Procedure: Informed consent was obtained from the patient after discussion of the indications, limitations, alternatives, benefits, and risks of the procedure. Risks specifically discussed include but are not limited to medication reactions, missed lesions, bleeding, perforation, or the need for emergentsurgery. Throughout the procedure, the patient's bloodpressure, pulse, end-tidal CO2, and oxygen saturations were monitored continuously. The Olympus adult variable colonoscope [id number] #5was introduced through the anus and advanced to the terminal ileum. The colonoscopy was performedwithout difficulty. The patient tolerated the procedurewell. The quality of the bowel preparation was good. Complications: No immediate complications. Estimated blood loss:None. Findings: The perianal and digital rectal examinations were normal. A 5 mm polyp was found in the ascending colon. The polyp was sessile. The polyp was removed with a hot snare. Resection and retrieval were complete. A diminutive polyp was found in the ascending colon. The polyp was sessile. The polyp was removed with a cold biopsy forceps. Resection and retrieval were complete. A few small-mouthed diverticula were found in the sigmoid colon and descending colon. The rectum, recto-sigmoid colon, sigmoid colon, descending colon, splenic flexure, transverse colon, hepatic flexure, cecum, appendiceal orifice,ileocecal valve, ileum and rectum (on retroflexion) appeared normal. Impression: - One 5 mm polyp in the ascending colon, removedwith a hot snare. Resected and retrieved. - One diminutive polyp in the ascending colon,removed with a cold biopsy forceps. Resected andretrieved. - Diverticulosis in the sigmoid colon and in the descending colon. - The rectum, recto-sigmoid colon, sigmoid colon, descending colon, splenic flexure, transverse colon, hepatic flexure, cecum, appendiceal orifice,ileocecal valve and terminal ileum are normal. Recommendation: - Discharge patient to home. - High fiber diet. - Continue present medications. - High fiber diet [Duration]. - Repeat colonoscopy in 5 years for surveillance. - I will send you pathology results by letter. Ifyou do not get results in 3 weeks telephone my office. DONI NGUYEN MD 10/31/2020 11:39:10 AM This report has been signed electronically. Number of Addenda: 0 Note Initiated On: 10/31/2020 11:10 AM Procedure Code(s): --- Professional --- 84972, Colonoscopy, flexible; with removal of tumor(s), polyp(s), or other lesion(s) by snare technique 42862, 59, Colonoscopy, flexible; with biopsy, single or multiple --- Technical --- 52652, Colonoscopy, flexible; with removal of tumor(s), polyp(s), or other lesion(s) by snare technique [id number], 59, Colonoscopy, flexible; with biopsy, single or multiple Diagnosis Code(s): --- Professional --- Z86.010, Personal history of colonic polyps D12.2, Benign neoplasm of ascending colon K57.30, Diverticulosis of large intestine without perforation or abscess without bleeding --- Technical --- Z86.010, Personal history of colonic polyps D12.2, Benign neoplasm of ascending colon K57.30, Diverticulosis of large intestine without perforation or abscess without bleeding CPT copyright 2018 [employer]. All rights reserved. The codes documented in this report are preliminary and upon brush and broom clipper reviewmay be revised to meet current compliance requirements. 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 PCP - General Internal Medicine 12/11/17 Anatoliy Sosa DO [address] [place] [address] Insurance Assigned Provider 12/03/23 Additional Source Comments The information contained in this document represents components of the legal health record. It is not the complete legal health record.[facility]
--- OUTSIDE RECORDS SUMMARY | 2025-05-29 19:02 | XMS_ITS | Data Portability ---
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) MDM MODERATE MUST MEET 2 OUT OF [...] EACH ELEMENT THAT IS COVERED Not available 02/04/2025 09:15:20 Plan of Treatment Reminders Order Date Submit Date Provider Last Modified By Organization Details Last Modified Time Details Appointments FOLLOW UP 15 2024 09:00A M DR SOSA Not available Not available Not available Lab hemoglobi n A1c, QN, blood 2024 025 [facility], [address] [place] [address], [id number], 02/04/2025 09:18:15 lipid panel, blood 2024 025 [facility], [address] [place] [address], [id number], 02/16/2025 15:20:50 CMP, serum or plasma 2024 025 [facility], [address] [place] [address], [id number], 02/04/2025 09:18:14 CBC w/ auto diff 2024 025 [facility], [address] [place] [address], [address], 02/04/2025 09:18:15 MMRV immunity, serum or plasma 2024 [facility], [address] [place] [address], [address], 10/29/2024 11:20:40 CBC 2023 [facility], [address] [place] [address], [address], 07/24/2024 11:47:08 PSA, serum or plasma 2023 [facility], [address] [place] [address], [address], 07/23/2024 11:54:14 HbA1c (hemoglob in A1c), blood 2023 [facility], [address] [place] [address], [address], 07/24/2024 11:47:08 CMP, serum or plasma 2023 024 [facility], [address] [place] [address], [id number], 07/24/2024 11:47:07 Referral None recorded. Procedures None recorded. Surgeries None recorded. Imaging CT, abdomen + pelvis, w/o contrast 2024 [facility], [address] [place], [address], 11/13/2024 08:28:53 XR, chest, 2 view - follow up from right sided pneumonit is 2023 [facility], [address] [place], [address], 03/27/2024 08:07:52 Medication Orders Trulicity 0.75 mg/0.5 mL subcutane ous pen injector 2024 025 [id number], [address] [place], [place], [id number], 02/04/2025 09:20:36 metformin ER 500 mg tablet,ex tended release 24 hr [email or web address] [id number], [address] [place], [place], [id number], 11/12/2024 10:47:39 mupirocin 2 % topical ointment [address] [facility] #[id number], [address] [place], [place], [id number], 10/29/2024 11:18:39 Patient TargetsNo targets recorded. Patient InstructionsNo instructions recorded. Reason for Referral None Reported. Results Created Date Observation Date Name Description Value Unit Range Abnormal Flag Note LastModifiedBy Organization Detail LastModifiedTime 10/26/1910/26/2024 HbA1c (hemo globi n A1c), blood A1C 6.9 abnormal Not Available [facility] (Medical Records) [address] [place], [address], 10/29/2024 11:13:11 02/22/20 24 02/22/2024 XR, chest , 2 view No observ ation record ed. [email or web address] [address], [address], 02/24/2024 12:11:48 04/05/20 24 04/05/2024 XR, chest , 2 view No observ ation record ed. [email or web address] [address], [address], 2024 09:20:33 11/27/1911/22/2024 CT, abdom en + pelvi s, w/o contr ast No observ ation record ed. [email or web address] [address], [address], 11/27/2024 08:46:09 Result Notes None recorded. Problems Name Problem SNOMED Code Status Onset Date Resolution Date Notes Provider Name and Address Organization Details Recorded Time Hyperten sive disorder 63453419 Active 2017 Not Available [facility] 2 13:45:01 Impaired fasting glycemia 872178734 Completed 201710/19/2019 Elías Sosa DO [address] [place] [address], [address], [facility] 0 16:44:26 Degenera tion of lumbar interver tebral disc 59568484 Active 2017 Not Available [facility] 2 13:45:01 History of polyp of colon 187901233 Active 2017 Not Available [facility] 2 13:45:01 Osteoart hritis 001153141 Active 2018 Not Available [facility] 2 13:45:01 Type 2 diabetes mellitus 31502934 Active 2019 Not Available [facility] 2 13:45:01 Gastroes ophageal reflux disease 835983020 Active 2019 Not Available [facility] 2 13:45:01 Costal chondrit is 45433753 Active 2021 Elías Sosa DO [address] [place] [address], [address], [facility] 2 16:26:27 Osteoart hritis of left knee joint 4759715318 93890 Active 2021 did well with replacem ent since nov has been back to work [facility] Elías Sosa DO [address] [place] [address], [address], [facility] 3 16:18:47 Hypercho lesterol emia 49461760 Active 2022 Elías Sosa DO [address] [place] [address], [address], [facility] 3 16:23:44 Calcific coronary arterios clerosis 78228244 Active 2022 Elías Sosa DO [address] [place] [address], [address], [facility] 3 16:25:38 Low back pain 384930359 Active 2023 Elías Sosa, DO [address] [place] [address], [address], [facility] 4 12:21:40 Pain of left hip joint 2983901530 59168 Active 2023 Elías Coroneljamarcus, DO [address] [place] [address], [address], [facility] 4 12:22:12 Motion sickness 43596412 Active 2023 Elías Coroneljamarcus, DO [address] [place] [address], [address], [facility] 4 12:25:30 Allergic rhinitis 16356674 Active 2023 Elías Coroneljamarcus, DO [address] [place] [address], [address], [facility] 4 12:28:18 Bilatera l sacroili itis 7650464155 2334519 Active 2023 Elías Sosa, DO [address] [place] [address], [address], [facility] 4 11:46:35 Pneumoni tis 235155220 Active 2023 Elías Sosa, DO [address] [place] [address], [address], [facility] 4 10:42:21 Cough 54195252 Active 2023 Elías Brent Bernajamarcus, DO [address] [place] [address], [address], [facility] 4 22:34:30 Pneumoni a 022555129 Active 2023 Elías JanethAhsan Sosa, DO [address] [place] [address], [address], [facility] 4 00:37:56 Reactive airway disease 5484442644 06 Active 2023 Elías Sosa DO [address] [place], [address], [facility] 4 09:34:57 Follicul itis 45252397 Active 2024 Elías Sosa DO [address] [place], [address], [facility] 5 11:17:05 Abdomina l pain 03211335 Active 2024 RIVKA ALBARRAN [address] [place], [address], [facility] 5 10:54:23 Right inguinal pain 4039866864 7695378 Active 2024 RIVKA ALBARRAN [address] [place], [address], [facility] 5 10:59:40 Bilatera l inguinal hernia 45553733 Active 2024 RIVKA ALBARRAN [address] [place] [address], [address], [facility] 5 13:47:47 Uncontro lled type 2 diabetes mellitus 599563693 Active 2024 Elías Sosa DO [address] [place] [address], [address], [facility] 5 21:39:36 Problem Notes None recorded. Procedures Surgical History Date Name Laterality Status Provider Name and Address Organization Details Recorded Time 6 Colonoscopy completed Mariela Palmer [facility] 08/25/2018 09:49:23 Imaging Results None recorded. Procedure Notes None recorded. Medical Equipment None Reported. Allergies Allergen ID Allergen Name Allergen Category Reaction Reaction Severity Criticality Documentation Date Start Date Code Code System Note Provider Name and Address Organization Details Recorded Time 8810 metformin medicatio n gi bleed Not available Not available 11/02/2024 8509 RxNorm Rell Sosa null, [facility] 5 14:37:13 8910 glipizide medicatio n nausea Not available low 11/28/2024 4821 RxNorm Elías Kennedy Bernajamarcus, DO [address] [place], [address], [facility] 5 15:58:07 Medications Name Sig Start Date Stop Date Status Note LastModified by Organization Details LastModified Time prednisone 10 mg tablet 4 tab po 1d x 3 days then 3 po qd x 3 ,then 2 po qd x 3 then 1 po qd x3 days 10/29 completed Not Available Not Available Not [...] 10 mg tablet TAKE 1 TABLET DAILY 2024 active Not Available Not Available Not Avai lable glimepiride 4 mg tablet Take 1 tablet every day by oral route for 30 days. 02/04 completed Not Available Not Available Not Available omeprazole 20 mg capsule,del ayed release TAKE 1 CAPSULE DAILY 2024 active Not Available Not Available Not Avai lable mupirocin 2 % topical ointment APPLY SMALL [...] No t Available tadalafil 20 mg tablet TAKE 1 TABLET DAILY 2024 active Not Available Not Available Not Avai lable losartan 100 mg-hydrochl orothiazide 12.5 mg tablet TAKE 1 TABLET DAILY active Not Available Not Available No t Available hydrochloro thiazide 12.5 mg tablet TK 1 T PO QD 11/07 completed Not Available Not Available Not Available Trulicity 0.75 mg/0.5 mL subcutaneou s pen injector ADMINISTE R 0.75 MG UNDER THE SKIN EVERY WEEK 2024 active Not Available Not Available Not Avai lable Wixela Inhub 500 mcg-50 mcg/dose powder for [...] in Arterial blood by Pulse oximetry Systolic And Diastolic Provider Name and Address Organization Details Last Updated DateTime 5 177.8 cm 36.6 kg/m2 936824. 05 g 93 /min 99 % 99 % 152/84 mm[Hg] Elías Sosa, DO [address] [place], [address] 5 10:59:43 Date Recorded Body height Body mass index (BMI) Body weight Heart rate Oxygen saturation Oxygen saturation in Arterial blood by Pulse oximetry Systolic And Diastolic Provider Name and Address Organization Details Last Updated DateTime 5 177.8 cm 36 kg/m2 996235. 68 g 96 /min 98 % 98 % 154/84 mm[Hg] Nick Keys [facility] 5 10:49:23 Date Recorded Body height Body mass index (BMI) Body weight Heart rate Oxygen saturation Oxygen saturation in Arterial blood by Pulse oximetry Systolic And Diastolic Provider Name and Address Organization Details Last Updated DateTime 5 177.8 cm 35.2 kg/m2 209614. 13 g 91 /min 98 % 98 % 140/78 mm[Hg] Elías FowlerAhsan Bernajamarcus, DO [address] [place], [address] [place] [address] Internal Medicine 5 09:03:19 Date Recorded Body height Body mass index (BMI) Body weight Heart rate Oxygen saturation Oxygen saturation in Arterial blood by Pulse oximetry Systolic And Diastolic Provider Name and Address Organization Details Last Updated DateTime 4 177.8 cm 36 kg/m2 188508. 68 g 103 /min 97 % 97 % 120/70 mm[Hg] Dorothy Camacho [facility] 4 12:08:18 Date Recorded Body height Body mass index (BMI) Body weight Heart rate Oxygen saturation Oxygen saturation in Arterial blood by Pulse oximetry Systolic And Diastolic Provider Name and Address Organization Details Last Updated DateTime 4 177.8 cm 36.2 kg/m2 942919. 28 g 92 /min 98 % 98 % 148/78 mm[Hg] Dorothy Camacho [facility] 4 11:37:10 Social History Question Answer Notes LastModified by Organizat ion Details LastModified Time Tobacco Smoking Status Former Smoker Not Available [facility] 07/01/2020 03:36:24 What Was The Date Of Your Most Recent Tobacco Screening? 02/04/2025 Information not available 02/04/2025 Sex: Unknown Functional Status Question Answer Note LastModified by Organization D etails LastModified Time Do you or have you ever used any other forms of tobacco or nicotine? No [email or web address] Information not available 05/10/2022 Mental Status None recorded. Family History Nothing Reported. Medical History No medical history recorded. Immunizations Vaccine Type Date Status Note Provider Nam e and Address Organization Details Recorded Time Influenza, split virus, quadrivalent, preservative 1 completed Not Available [facility] 08/23/2023 14:30:06 Tdap 1 completed Not Available [facility] 08/23/2023 14:30:06 COVID-19, mRNA, LNP-S, PF, 30 mcg/0.3 mL dose 1 completed Not Available [facility] 08/23/2023 14:30:06 COVID-19, mRNA, LNP-S, PF, 30 mcg/0.3 mL dose 1 completed Not Available [facility] 08/23/2023 14:30:06 COVID-19, mRNA, LNP-S, PF, 30 mcg/0.3 mL dose 2 completed Not Available [facility] 08/23/2023 14:30:06 influenza, unspecified formulation 2 completed Not Available [facility] 08/23/2023 14:30:06 Past Encounters Encounter ID Performer Location Encounter Start Date Encounter Closed Date Diagnosis/Indication Diagnosis SNOMED-CT Code Diagnosis ICD10 Code Diagnosis IMO Codes Diagnosis Note [id number] Elías Sosa [facility] [address] [facility] [address] [address] 08/25/2018 10:15:10 08/25/2018 12:35:45 Hypertensive disorder 60014125 I10 bp is stable and is doing ok has lost some wgt \ tolerating meds no issues Impaired f asting glycemia 078341540 R73.01 will need to get some labwork atsome point [id number] Elías Sosa [facility] [address] [facility] [address] [address] 03/13/2019 10:40:15 03/13/2019 16:16:11 Hypertensive disorder 66741084 I10 bp is stable and is doing ok has lost some wgt \ tolerating meds no issues Impaired f asting glycemia 219719554 R73.01 will need to get some labwork now Hypercholesterolemia 136 51611 E78.00 needs fbw [id number] Elías Sosa [facility] [address] [facility] [address] [address] 08/17/2019 14:10:13 08/17/2019 14:33:11 Impaired fasting glycemia 902427496 R73.01 will need to get some labwork now Hypertensive disorder 38 407338 I10 bp is stable and is doing ok has lost some wgt \ tolerating meds no issues Fatigue 34410764 R53.83 including ED Primary er ectile dysfunction 821034491 N52.9 [id number] Elías Sosa [facility] [address] [facility] [address] 10/19/2019 15:41:21 10/22/2019 08:36:17 Hypertensive disorder 55844108 I10 bp is stable and is doing ok has lost some wgt tolerating meds no issues Hypercholesterolemia 136 73649 E78.00 tolerating lovastatin well will do a repeat lipid panel since last one was done in 2018 Diabetes mellitus 055011 09 E11.9 will start with diet and exercise to see if can lower A1c and blood glucose [id number] Elías Brent Sosa [facility] [address] [facility] [address] 02/04/2020 15:54:39 02/04/2020 16:42:53 Hypertensive disorder 07590616 I10 bp is stable and is doing ok has lost some wgt tolerating meds no issues Type 2 sheeba betes mellitus 88090988 E11.9 Gastroesop hageal reflux disease 976681502 K21.9 occ takes the prilosec or tums only on occasion Degenerati on of lumbar intervertebral disc 52249268 M51.36 lumbar antonieta ais good has flared recently and was about 2 weeks ago \relates otherwise it had abeen good Primary er ectile dysfunction 892487946 N52.9 [id number] Elías Kennedy Hardik [facility] [address] [facility] [address] 06/18/2020 14:28:56 06/18/2020 14:51:23 Type 2 diabetes mellitus 88824046 E11.9 is utd in the preventiti ve aspects has good feet exam and is compliant with his eye eval a1c 7.3 Hypertensive disorder 38 660946 I10 bp is stable and is doing ok has lost some wgt tolerating meds no issues Immunization due 8515387 08 Z28.3 [id number] Elías FowlerAhsan Sosa [facility] [address] [facility] [address] [address] 11/07/2020 15:20:20 11/07/2020 15:57:11 Type 2 diabetes mellitus 65125686 E11.9 is utd in the preventiti ve aspects has good feet exam and is compliant with his eye eval a1c 7.3 last time but needs test now Hypertensive disorder 38 424307 I10 bp is stable and is doing ok has lost some wgt tolerating meds no issues Gastroesop hageal reflux disease 066042426 K21.9 we are going to cont the omeprazole in case this turns out to be laryngeal reflux (ie the cough) Cough 24433921 R05 we will do a throat culture also we will treat him for an atypical org we will have him stop the losartan for a few days and then let me know how he is feeling also could also be a poss form of asthma Trigger fi nger of right hand 9449696064 [id number] M65.30 [id number] Elías Sosa [facility] [address] [place] [address],[place] [address] 11/28/2020 14:57:24 11/28/2020 15:30:46 Hypertensive disorder 11596838 I10 bp is stable and is doing ok has lost some wgt tolerating meds no issues Esophageal dysphagia 408 43633 R13.19 coughing after each meal /??if this is esoph dysmotilit y v. diverticul um v stricture? ? Pain in fi nger of right hand 3964810297 61529 M79.644 [id number] Elías Sosa [facility] [address] [facility],[place] [address] 09/18/2021 08:27:13 09/18/2021 13:39:06 Hypertensive disorder 41343107 I10 bp is stable and is doing ok has lost some wgt tolerating meds no issues Type 2 sheeba betes mellitus 35212243 E11.9 is utd in the preventiti ve aspects has good feet exam and is compliant with his eye eval a1c 7.3 last time but needs test now Gastroesop hageal reflux disease 716610934 K21.9 we are going to cont the omeprazole in case this turns out to be laryngeal reflux (ie the cough) Primary er ectile dysfunction 979968780 N52.9 [id number] Elías Sosa [facility] [address] [facility],[place] [address] 01/18/2022 15:53:03 01/19/2022 14:52:27 Gastroesophageal reflux disease 156482170 K21.9 we are going to cont the omeprazole in case this turns out to be laryngeal reflux (ie the cough) Type 2 sheeba betes mellitus 40383049 E11.9 is utd in the [facility] has good feet exam and is compliant with his eye eval a1c 7.3 last time but needs test now Hypertensive disorder 38 144966 I10 bp is stable and is doing ok has lost some wgt and this will continue tolerating meds no issues Active or passive immunization 021787053 Z23 patient advised of vaccines due Costal chondritis 071961 04 M94.0 will use advil and call if unhelpful [id number] [facility] [address] [facility] [employer] [facility] [place] [address] 05/10/2022 15:14:47 05/10/2022 16:00:12 Type 2 diabetes mellitus 03513474 E11.9 is utd in [facility] has good feet exam and is compliant with his eye eval a1c 6.0 last time but needs test now Hypertensive disorder 38 704769 I10 bp is stable and is doing ok has lost some wgt and this will continue tolerating meds no issues Osteoarthr itis of left knee joint 6450915121 63950 M17.12 getting knee replacemen t in june Elías Sosa DO [facility] [address] [facility],[place] [address] 09/17/2022 14:58:42 09/17/2022 16:00:26 Type 2 diabetes mellitus 62796421 E11.9 is utd in [facility] has good feet exam and is compliant with his eye eval a1c .6.5 last time but needs test now Hypertensive disorder 38 057868 I10 bp is stable and is doing ok has lost some wgt and this will continue tolerating meds no issues [id number] [facility] [address] [facility],[place] [address] 12/27/2022 15:21:50 12/27/2022 16:50:34 Type 2 diabetes mellitus 44989204 E11.9 is utd [facility] has good feet exam and is compliant with his eye eval a1c .is pending! last was in apr was 6.5 last time but needs test now Hypertensive disorder 38 504759 I10 bp is stable and is doing ok has lost some wgt and this will continue tolerating meds no issues Osteoarthr itis of left knee joint 0024585975 49147 M17.12 getting knee replacemen t in june Elías Sosa [facility] [address] [facility], [place] [address] 04/20/2023 15:22:49 04/20/2023 16:30:57 Hypertensive disorder 68161079 I10 bp is stable and is doing ok has lost some wgt and this will continue tolerating meds no issues Type 2 sheeba betes mellitus 78476815 E11.9 is utd in [facility] has good feet exam and is compliant with his eye eval a1c .is 5.6 last was in apr was 6.5 last time but needs test now Hypercholesterolemia 136 48613 E78.00 given coronary calcium score we will have him switch to rosuvastat in and get cardiology appt Calcific c oronary arteriosclerosis 19394254 I25.10 [id number] Elías Sosa [facility] [address] [facility],[place] [address] 11/28/2023 11:52:18 11/28/2023 13:54:26 Type 2 diabetes mellitus 94108010 E11.9 is [facility]d [facility] has good feet exam and is compliant with his eye eval a1c .is 6.2 prior was 5.6 last was in apr was 6.5 last time but needs test now Hypercholesterolemia 136 56293 E78.00 Prior : given coronary calcium score we will have him switch to rosuvastat in and get cardiology appt Low back pain 575830874 M54.50 tremayne l start with xrays of these areas Pain of le ft hip joint 7228108433 47511 M25.552 will get pelvis too Motion sickness 18668968 T75.3XXA Allergic rhinitis 067228 04 J30.9 will try zyrtec [id number] Elías Sosa, [facility] [address] [facility] [address],[place] [facility] [place] [address] 12/19/2023 11:09:03 12/19/2023 12:01:18 Bilateral sacroiliitis 6646799382 3210074 M46.1 [id number] Elías Kennedy Hardik [facility] [address] [facility] [address] [address] 02/13/2024 10:07:32 02/13/2024 10:51:41 Depression screening 069501840 Z13.31 Negative Pneumonitis 264415940 J1 8.9 Primary er ectile dysfunction 182447523 N52.9 [id number] Elías Kennedy Hardik [facility] [address] [facility] [address] [address] 02/28/2024 08:56:26 02/28/2024 14:47:09 Pneumonia 205559865 J18.9 full week levofloxac in 750add pred taper Reactive a irway disease 6327260552 06 J45.909 will need taper [id number] Elías Coroneljamarcus [facility] [address] [facility] [address] [address] 03/12/2024 12:03:11 03/13/2024 09:08:17 Pneumonitis 276748263 J18.9 [id number] [facility] [address] [facility] [address],[place] [facility] [place] [address] 07/23/2024 11:33:48 07/23/2024 11:54:46 Hypercholesterolemia 27029651 E78.00 Prior : given coronary calcium score we will have him switch to rosuvastat in and get cardiology appt Hypertensive disorder 38 804159 I10 bp is stable and is doing ok has lost some wgt and this will continue tolerating meds no issues Osteoarthr itis of left knee joint 2990621402 48902 M17.12 getting knee replacemen t in june Type 2 sheeba betes mellitus [id number] E11.9 is utd in the preventiti ve aspects has good feet exam and is compliant with his eye eval a1c .is 6.2 prior was 5.6 last was in apr was 6.5 last time but needs test now [id number] Elías Sosa [facility] Internal Medicine [address] [facility] on [place], [place] [address] 10/29/2024 10:54:33 10/29/2024 11:36:05 Hypercholesterolemia 70613647 E78.00 Prior : given coronary calcium score we will have him switch to rosuvastat in and get cardiology appt Hypertensive disorder 38 495861 I10 bp is stable and is doing ok has lost some wgt and this will continue tolerating meds no issues Type 2 sheeba betes mellitus [id number] E11.9 is utd in the preventiti ve aspects has good feet exam and is compliant with his eye eval a1c .was 7.2 and is now donwn to 6,9 prior 6.2 prior was 5.6 last was in apr was 6.5 last time but needs test now Osteoarthr itis of left knee joint [id number] M17.12 getting knee replacemen t in june Depression screening 171 628111 Z13.31 Negative Folliculitis 56254948 L7 3.9 prob some impetigo as well Active or passive immunization [id number] Z23 patient advised of vaccines due [id number] Elías Sosa [facility] Internal Medicine [address] [facility], [place] [address] 11/12/2024 10:40:38 11/12/2024 14:26:53 Abdominal pain 17608001 R10.31 will set up with abdominal scan ?hernia vs kidney stone Right inguinal pain 1562 [id number] R10.[address] [id number] Elías Sosa [facility] Internal Medicine [address] [facility] on [place] [address] 02/04/2025 08:56:10 02/04/2025 09:39:28 Depression screening 131991991 Z13.31 Negative Hypercholesterolemia 136 18984 E78.00 Prior : given coronary calcium score we will have him switch to rosuvastat in and get cardiology appt Hypertensive disorder 38 281332 I10 bp is stable and is doing ok has lost some wgt and this will continue tolerating meds no issues Type 2 sheeba betes mellitus 03014638 E11.9 is utd in the preventiti ve aspects has good feet exam and is compliant with his eye eval no retinopath y a1c is 6.8 and was 7.2 and is now donwn to 6,9 prior 6.2 prior was 5.6 last was in apr was 6.5 last time but needs test now Uncontroll ed type 2 diabetes mellitus [id number] E11.65 Health Concerns Section Related Observation LastModified by Organization Detai ls LastModified Time None Recorded Concern Status LastModified by Organization Details LastModified Time None Recorded Advance Directives Directive None Recorded Payers Insurance Date Sequence Insurance Name Policy Number Policy [employer] Covered Member ID [employer] Member ID Guarantor Name 02/01/2025 1 ROJAS (PPO) [id number] Mj T Halket [id number] Mj T Halket 05/09/2022 1 [facility] [id number] Mj T T Halket [id number] Mj T Halket Notes Date Note Type Note Provider Name and Address Organization Details Recorded Time 03/12/20 24 text/htm l ROS as noted in the HPI here for rechk and is doing much better overallcough has abated and relates he is doing greatfeels much better now and inhalers and abx have gotten better and is now back to baseline Elías Sosa, DO [address] [place] [address], [place], [address], [facility] 03/12/2024 12:29:39 07/23/20 24 text/htm l Care Management - HypertensionReported by PatientHPIFor self care, patient reportsnot under emotional stress. For severity, patient reportssymptoms are improvinganddoes not interfere with daily activities. For associated symptoms, patient reportsno dizziness,no lightheadedness,no chest pain,no shortness of breath,no palpitations,no edema,no calf muscle cramps,no blurred vision,no confusion,no headaches, andno fatigue. Care Management - DiabetesReported by PatientHPIFor self care, patient reportsseeing eye doctor yearly for dilated eye exam,checking feet regularly,normal range of home blood sugars (in the low 100s), andno side effects from medications. For associated symptoms, patient reportssymptoms are usually well controlled,no fatigue,no dizziness,no excessive sweating,no headaches,no confusion,no increased thirst,no increased appetite,no increased urination,no blurred vision,no numbness of feet, andno calluses on feet.ROS as noted in the HPI here for rech of bprelates that he is doing okstill has occ gerd sx but overall feels well still takes omeprazole Elías Sosa, DO [address] [place], [address], [facility] Internal Medicine 07/23/2024 11:54:16 10/30/19 text/htm l ROS as noted in the HPI here for rechk and is doing ok overall has lost 5lbsseeing dr garcía who wants his LDL below 70wants him to drop Elías Sosa, DO [address] [place], [address], [facility] Internal Medicine 10/29/2024 11:31:43 11/13/19 text/htm l ROS as noted in the HPI c/o abdominal pain the patient gets lower [...] given location and presentation RIVKA ALBARRAN [address] [place], [address], [facility] Internal Medicine 11/12/2024 10:59:53 02/05/20 text/htm l Care Management - DiabetesReported by PatientHPIFor self care, patient reportsseeing eye doctor yearly for dilated eye exam,checking feet regularly,normal range of home blood sugars (in the low 100s), andno side effects from medications. For associated symptoms, patient reportssymptoms are usually well controlled,no fatigue,no dizziness,no excessive sweating,no headaches,no confusion,no increased thirst,no increased appetite,no increased urination,no blurred vision,no numbness of feet, andno calluses on feet. Care Management - HypertensionReported by PatientHPIFor self care, patient reportsnot under emotional stress. For severity, patient reportssymptoms are improvinganddoes not interfere with daily activities. For associated symptoms, patient reportsno dizziness,no lightheadedness,no chest pain,no shortness of breath,no palpitations,no edema,no calf muscle cramps,no blurred vision,no confusion,no headaches, andno fatigue. Care Management - HyperlipidemiaReported by PatientHPIFor control, patient reportsusually well controlled,improving, andat goal. For complications, patient reportsno coronary artery disease,no heart attack,no cardiovascular disease,no pancreatitis, andno stroke.ROS as noted in the HPI here for rechk relates that his right knee is getting badhad carol inj and this only lasted a [facility] all good here for rechk and is doing ok overall has lost 5lbsseeing dr garcía who wants his LDL below 70wants him to drop Elías Sosa, DO [address] [facility], [place], [address], [facility] Internal Medicine 02/04/2025 09:23:17
--- OUTSIDE RECORDS SUMMARY | 2025-05-29 19:02 | XMS_ITS | Encounter Summary ---
Author Organization [facility] Address [address] [place] [address] Phone Care Team Providers Care Barrel Loader Name Role Phone Elías Dye Primary Care Provider [phone] BernaElías ricketts Unavailable Encounter Details Date Type Department Care Team ([facility] st Contact Info) Description 02/21/2024 Transcribe Orders Virtual Department [address] [place] [address] Elías Dye DO [address] [place] [address] Cough, unspecified type (Primary Dx) Social History Tobacco Use Types [...] Description 08/28/2025 7:40 AM EST Office Visit [facility] [address] [facility] 3rd Floor, [address] [place] [address] Jimbo García MD [address] [facility], [address] [place] [address] [email or web address] documented as of this encounter Results * XR CHEST PA AND LATERAL 2 VIEWS (02/22/2024 8:11 AM EDT) Anatomical Region Laterality Modality Chest Computed Radiogr aphy 02/22/2024 10:1 2 AM EDT Impressions 02/22/2024 10:12 AM EDT Patchy opacity in the right hilar region and small amount of fluid in the right minor fissure could suggest pneumonia. Advise 4-6 week follow-up radiograph to ensure resolution Narrative 02/22/2024 10:12 AM EDT XR CHEST PA AND LATERAL 2 VIEWS Referring clinician's provided indication for this examination in [facility]: Cough; cough COMPARISON: None FINDINGS: Lungs: Patchy opacity in the right hilar region and small amount of fluid in the right minor fissure could suggest pneumonia. Heart/Mediastinum: Heart size normal. Bones/Soft Tissues: No acute finding Procedure Note Justyn Crenshaw MD, SIMON - 02/22/2024 XR CHEST PA AND LATERAL 2 VIEWS Referring clinician's provided indication for this examination in [facility]:Cough; cough COMPARISON: None FINDINGS: Lungs: Patchy opacity in the right hilar region and small amount of fluidin the right minor fissure could suggest pneumonia. Heart/Mediastinum: Heart size normal. Bones/Soft Tissues: No acute finding IMPRESSION: Patchy opacity in the right hilar region and small amount of fluid in theright minor fissure could suggest pneumonia. Advise 4-6 week follow-up radiograph to ensure resolution Elías Dye DO IMG XR CHEST Final Result documented in this encounter Visit Diagnoses Diagnosis Cough, unspecified type- Primary Cough, unspecified type documented in this encounter Care Teams Barrel Loader Relationship Specialty Start Date End Date BernaElías ricketts PCP - General Internal Medicine 12/11/17 Elías Dye DO [address] [place] [address] Insurance Assigned Provider 12/03/23 documented as of this encounter Additional Source Comments The information contained in this document represents components of the legal health record. It is not the complete legal health record.[facility]
--- OUTSIDE RECORDS SUMMARY | 2025-05-29 19:02 | XMS_ITS | Encounter Summary ---
Author Organization [facility] Address [address] [facility] [address] [place] [address] Phone Care Team Providers Care Lotteries Agent Name Role Phone Elías Dye Primary Care Provider [phone] BernaElías ricketts Unavailable Encounter Details Date Type Department Care Team (Late st Contact Info) Description 11/28/2020 Transcribe Orders Virtual Department [address] [place] [address] Elías Dye DO [address] [facility] [place] [address] Other dysphagia (Primary Dx) Social History Tobacco Use Types [...] Description 08/28/2025 7:40 AM EST Office Visit [facility] [address] [place] [address] 3rd Floor, [address] [place] [address] Jimbo García MD [address] [facility], [address] [place] [address] [email or web address] documented as of this encounter Results * FL BARIUM SWALLOW ESOPHAGRAM DOUBLE CONTRAST (12/22/2020 8:31 AM EDT) Anatomical Region Laterality Modality Chest Computed Radiogr aphy 12/22/2020 8:09 AM EDT Impressions 12/22/2020 11:46 AM EDT No explanation for dysphagia. Clinical follow-up recommended. FLUOROSCOPY TIME: 1 min. 13 sec; 36 IMAGES/FRAMES Narrative 12/22/2020 11:46 AM EDT HISTORY: Dysphagia in the region of the throat. COMPARISON: None. EXAM: FL BARIUM SWALLOW FINDINGS: Biphasic esophagram with additional cine (video) images of the pharynx and upper esophagus. No laryngeal penetration or aspiration during the exam. No evidence of esophageal strictures. No evidence of ulcerations. No significant esophageal dysmotility. Small sliding-type hiatal hernia. No gastroesophageal reflux demonstrated during the exam. Procedure Note Doni Smith MD - 12/22/2020 HISTORY: Dysphagia in the region of the throat. COMPARISON: None. EXAM: FL BARIUM SWALLOW FINDINGS: Biphasic esophagram with additional cine (video) images of the pharynx andupper esophagus. No laryngeal penetration or aspiration during the exam. No evidence ofesophageal strictures. No evidence of ulcerations. No significantesophageal dysmotility. Small sliding-type hiatal hernia. Nogastroesophageal reflux demonstrated during the exam. IMPRESSION: No explanation for dysphagia. Clinical follow-up recommended. FLUOROSCOPY TIME: 1 min. 13 sec; 36 IMAGES/FRAMES us Elías ROSS FL MISC Final Result documented in this encounter Visit Diagnoses Diagnosis Other dysphagia- Primary Other dysphagia documented in this encounter Care Teams Lotteries Agent Relationship Specialty Start Date End Date Elías Dye DO PCP - General Internal Medicine 12/11/17 Elías Dye DO [address] [place] [address] Insurance Assigned Provider 12/03/23 documented as of this encounter Additional Source Comments The information contained in this document represents components of the legal health record. It is not the complete legal health record.[facility]
--- OUTSIDE RECORDS SUMMARY | 2025-05-29 19:02 | XMS_ITS | Encounter Summary ---
Author Organization [facility] Address [address] [place] [address] [place] [address] Phone Care Team Providers Care Blade Grinder Name Role Phone Elías Dye DO Primary Care Provider [phone] Elías Dye DO Unavailable Encounter Details Date Type Department Care Team (Late st Contact Info) Description 10/31/2020 Procedure Pass [facility] Endoscopy Admitting Dept Virtual Department [address] [place] [address] Social History Tobacco Use Types Packs/Day Years [...] Description 08/28/2025 7:40 AM EST Office Visit [facility] [address] [place] [address] 3rd Floor, [address] [place] [address] Jimbo García MD [address] [facility], [address] [address] documented as of this encounter Visit Diagnoses Not on filedocumented in this encounter Care Teams Blade Grinder Relationship Specialty Start Date End Date Elías Dye DO [email or web address] PCP - General Internal Medicine 12/11/17 Elías Dye DO [address] [place] [address] [email or web address] Insurance Assigned Provider 12/03/23 documented as of this encounter Additional Source Comments The information contained in this document represents components of the legal health record. It is not the complete legal health record.[facility]
--- OUTSIDE RECORDS SUMMARY | 2025-05-29 19:02 | XMS_ITS | Encounter Summary ---
Author Organization [facility] Address [address] [place] [address] [address] [place] [address] Phone Care Team Providers Care Soil Surveyor Name Role Phone Elías Dye DO Primary Care Provider [phone] Elías Dye DO Unavailable Encounter Details Date Type Department Care Team (Late Contact Info) Description 11/13/2024 Procedure Pass [facility], Ct Scan - [facility] [address] [place] [address] Social History Tobacco Use Types Packs/Day Years [...] Description 08/28/2025 7:40 AM EST Office Visit [facility] [address] [place] [address] 3rd Floor, [address] [place] [address] Jimbo García MD [address] [facility], [address] [address] [email or web address] documented as of this encounter Visit Diagnoses Not on filedocumented in this encounter Care Teams Soil Surveyor Relationship Specialty Start Date End Date Elías Dye DO [email or web address] PCP - General Internal Medicine 12/11/17 Elías Dye DO [address] [facility] [place] [address] [email or web address] Insurance Assigned Provider 12/03/23 documented as of this encounter Additional Source Comments The information contained in this document represents components of the legal health record. It is not the complete legal health record.[facility]
[2025-05-30 05:32] LABS: Hemoglobin A1C 152.1088 umol/L
== END 2025-05-29 19:00 | disposition home or self-care (01) ==
LOC: HO.LNP 18:59
PROVIDERS: Visit Provider Internal Medicine
DX: E11.9 Type 2 diabetes mellitus without complications (principal)
CPT/HCPCS: 83036